=== PATIENT | male | born 1950 | race Caucasian/White ===

== ENCOUNTER 2016-06-24 13:19 | Inpatient (IN) | payer MEDICARE, OTHER ==
[2016-06-24] VITALS (276 sets, daily range): BP systolic 112–137; BP diastolic 38–72; PULSE 78–97; TEMP 98.3–99.1; O2SAT 92–100
[~2016-06-24] VITALS: Ht 170.2 cm; Wt 133.6 kg
[~2016-06-24 13:19] MED LIST: ACTOS30 MG PO; ASPIRIN 81M81 MG/TA2 PO; COLACE 100100 MG/CAP PO; EZETIMIBE10 MG PO; GLUCOPHAGE1000 MG PO; GLUCOTROL 5M5 MG/TAB PO; GLUMETZA1000 MG PO; HCTZ 25MG TAB25 MG PO; IRON325 MG PO; JANUVIA 100MG100 MG PO; PRAVACHOL 40MG40 MG PO; PROCARDIA XL90 MG PO; Procardia XL PO; XARELTO20 MG PO; ZESTRIL 10MG10 MG PO; ZESTRIL40 MG PO; ZYLOPRIM 100MG100 MG PO
[2016-06-24 13:59] LABS: BASO % 0.3 % (0.0-2.0); EOS # 0.1 (0.0-0.7); EOS % 0.7 % (0-4.0); GRAN # 8.6 (1.4-6.5); GRAN % 75.2 % (42.2-75.2); LYMPH # 1.3 (1.2-3.4); LYMPH % 11.3 % (20.0-51.0); MEAN CELL VOLUME 67 fl (80.0-100.0); MEAN CORPUSCULAR HGB CONC 29 g/dl (33.0-37.0); MEAN PLATELET VOLUME 10.4 fl (7.4-10.4); MONO # 1.4 (0.1-0.6); PLATELET COUNT 299 K/mm3 (130-400); RED BLOOD COUNT 4.92 M/mm3 (4.20-5.60); REDCELL DISTRIBUTION WIDTH-CV 20.2 % (11.5-14.5); WHITE BLOOD COUNT 11.5 K/mm3 (4.8-10.8)
[2016-06-24 14:00] LABS: HEMATOCRIT 32.9 % (42.0-52.0); HEMOGLOBIN 9.5 g/dl (13.5-18.0); MEAN CORPUSCULAR HEMOGLOBIN 19 pg (27.0-31.0)
[2016-06-24 14:05] LABS: INR 1.1 (0.8-3.0); PROTHROMBIN TIME 12.1 SECONDS (9.7-12.8)
[2016-06-24] MEDS ORDERED: HCTZ 25MG TAB25 MG PO (14:05)
[2016-06-24 14:08] LABS: PARTIAL THROMBOPLASTIN TIME 30.7 SECONDS (26.0-37.0)
[2016-06-24 14:23] LABS: ADJUSTED CALCIUM 9.2 mg/dL (8.4-10.2); ALANINE AMINOTRANSFERASE 26 U/L (21-72); ALKALINE PHOSPHATASE 109 U/L (50-136); ANION GAP 16 mmol/L (7-16); BILIRUBIN,TOTAL 1.1 mg/dL (0.0-1.0); BLOOD UREA NITROGEN 19 mg/dL (9-20); CALCIUM 9.2 mg/dL (8.4-10.2); CARBON DIOXIDE 20 mmol/L (22-30); CHLORIDE 96 mmol/L (98-107); CREATININE, serum 1.18 mg/dL (0.66-1.25); POTASSIUM 4.1 mmol/L (3.4-5.0); SODIUM 132 mmol/L (137-145); TOTAL PROTEIN 7.4 gm/dL (6.4-8.2)
[2016-06-24 14:33] LABS: B-TYPE NATRIURETIC PEPTIDE 221 pg/mL (0-125)
[2016-06-24 14:34] LABS: GLUCOSE 527 mg/dL (74-106); TROPONIN-I < 0.012 ng/mL (0.000-0.034)
[2016-06-24 17:58] LABS: HEMATOCRIT 32.9 % (42.0-52.0); HEMOGLOBIN 9.3 g/dl (13.5-18.0)
[2016-06-24 19:46] LABS: PH 5 (5-8); SQUAMOUS EPITHELIAL None Seen /hpf; URINE APPEARANCE Clear; URINE BACTERIA None Seen /hpf; URINE BILIRUBIN Negative (NEGATIVE); URINE BLOOD Negative (NEGATIVE); URINE COLOR Yellow; URINE GLUCOSE 3+ (NEGATIVE); URINE KETONE Negative (NEGATIVE); URINE UROBILINOGEN Negative (NEGATIVE)
[2016-06-24 20:05] LABS: HEMATOCRIT 31.3 % (42.0-52.0)
[2016-06-24 21:46] LABS: HEMATOCRIT 31.6 % (42.0-52.0); HEMOGLOBIN 9.1 g/dl (13.5-18.0)
[2016-06-24 23:58] LABS: HEMATOCRIT 30.7 % (42.0-52.0)
[2016-06-25] VITALS (393 sets, daily range): BP systolic 114–153; BP diastolic 58–81; PULSE 76–93; TEMP 97.9–99.1; O2SAT 86–100
[2016-06-25 07:32] LABS: THYROID STIMULATING HORMONE 0.507 uIU/mL (0.465-4.680)
[2016-06-25 08:32] LABS: BASO # 0.1 (0.0-0.2); BASO % 0.6 % (0.0-2.0); EOS # 0.3 (0.0-0.7); EOS % 3.5 % (0-4.0); GRAN # 6.8 (1.4-6.5); GRAN % 69.8 % (42.2-75.2); LYMPH # 1.3 (1.2-3.4); LYMPH % 13.5 % (20.0-51.0); MEAN CELL VOLUME 67 fl (80.0-100.0); MEAN CORPUSCULAR HGB CONC 28 g/dl (33.0-37.0); MEAN PLATELET VOLUME 11.4 fl (7.4-10.4); MONO # 1.2 (0.1-0.6); PLATELET COUNT 277 K/mm3 (130-400); RED BLOOD COUNT 4.46 M/mm3 (4.20-5.60); REDCELL DISTRIBUTION WIDTH-CV 20.1 % (11.5-14.5); WHITE BLOOD COUNT 9.8 K/mm3 (4.8-10.8)
[2016-06-25 08:34] LABS: HEMATOCRIT 29.9 % (42.0-52.0); HEMOGLOBIN 8.5 g/dl (13.5-18.0); MEAN CORPUSCULAR HEMOGLOBIN 19 pg (27.0-31.0)
[2016-06-25 09:48] LABS: CREATININE, serum 1.22 mg/dL (0.66-1.25); POTASSIUM 4.1 mmol/L (3.4-5.0)
[2016-06-26 00:31] VITALS: BP 151/64; PULSE 73; TEMP 98.8
[2016-06-26 04:15] VITALS: BP 148/74; PULSE 74; TEMP 98.6
[2016-06-26 07:59] VITALS: BP 130/61; PULSE 78; TEMP 98.3
[2016-06-26 10:00] LABS: FACTOR II ACTIVITY 88 % (72-140); FACTOR V 94 % (50-150)
[2016-06-26 10:00] LABS: BASO % 0.5 % (0.0-2.0); EOS # 0.3 (0.0-0.7); EOS % 4.3 % (0-4.0); GRAN # 4.9 (1.4-6.5); GRAN % 64.8 % (42.2-75.2); LYMPH # 1.3 (1.2-3.4); LYMPH % 17.6 % (20.0-51.0); MEAN CORPUSCULAR HGB CONC 29 g/dl (33.0-37.0); MEAN PLATELET VOLUME 11.3 fl (7.4-10.4); MONO # 0.9 (0.1-0.6); MONO % 12.3 % (1.7-9.3); PLATELET COUNT 286 K/mm3 (130-400); RED BLOOD COUNT 4.44 M/mm3 (4.20-5.60); REDCELL DISTRIBUTION WIDTH-CV 20.4 % (11.5-14.5); WHITE BLOOD COUNT 7.6 K/mm3 (4.8-10.8)
[2016-06-26 10:16] LABS: HEMATOCRIT 30.1 % (42.0-52.0); HEMOGLOBIN 8.6 g/dl (13.5-18.0); MEAN CELL VOLUME 68 fl (80.0-100.0); MEAN CORPUSCULAR HEMOGLOBIN 19 pg (27.0-31.0)
[2016-06-26 12:19] VITALS: BP 158/66; PULSE 75; TEMP 98.7
[2016-06-26 16:29] VITALS: BP 169/74; PULSE 76; TEMP 99.2
[2016-06-26 20:15] VITALS: BP 164/59; PULSE 70; TEMP 99.1
[2016-06-27] VITALS (7 sets, daily range): BP systolic 148–167; BP diastolic 62–91; PULSE 65–91; TEMP 98.1–98.6
[2016-06-27 08:05] LABS: FACTOR V LEIDEN MUTATION B Negative (Negative)
[2016-06-27 08:12] LABS: BASO % 0.6 % (0.0-2.0); EOS # 0.3 (0.0-0.7); EOS % 4.8 % (0-4.0); GRAN # 4.3 (1.4-6.5); GRAN % 62.3 % (42.2-75.2); LYMPH # 1.3 (1.2-3.4); LYMPH % 19.3 % (20.0-51.0); MEAN CORPUSCULAR HGB CONC 28 g/dl (33.0-37.0); MEAN PLATELET VOLUME 11.1 fl (7.4-10.4); MONO # 0.8 (0.1-0.6); MONO % 12.3 % (1.7-9.3); PLATELET COUNT 292 K/mm3 (130-400); RED BLOOD COUNT 4.37 M/mm3 (4.20-5.60); REDCELL DISTRIBUTION WIDTH-CV 20.5 % (11.5-14.5); WHITE BLOOD COUNT 6.8 K/mm3 (4.8-10.8)
[2016-06-27 08:18] LABS: HEMATOCRIT 30.1 % (42.0-52.0); HEMOGLOBIN 8.5 g/dl (13.5-18.0); MEAN CORPUSCULAR HEMOGLOBIN 19 pg (27.0-31.0)
[2016-06-27 08:19] LABS: MEAN CELL VOLUME 69 fl (80.0-100.0)
[2016-06-28 03:48] VITALS: BP 162/64; PULSE 65; TEMP 98.2
[2016-06-28 07:10] LABS: CALCIUM 8.9 mg/dL (8.4-10.2); CREATININE, serum 0.86 mg/dL (0.66-1.25); MAGNESIUM 1.7 mg/dL (1.6-2.3); POTASSIUM 3.8 mmol/L (3.4-5.0)
[2016-06-28 07:18] LABS: HEMOGLOBIN 8.1 g/dl (13.5-18.0)
[2016-06-28 07:51] VITALS: BP 147/76; PULSE 60; TEMP 98.4
[2016-06-28 11:57] VITALS: BP 156/73; PULSE 67; TEMP 98.6
[2016-06-28 12:34] LABS: PROTEIN C ACTIVITY 104 % (70-150)
[2016-06-28 12:56] LABS: PROTEIN S ACTIVITY 88 % (65-160)
[2016-06-28 20:20] VITALS: BP 152/65; PULSE 66; TEMP 98.4
[2016-06-28 23:58] VITALS: BP 137/72; PULSE 68; TEMP 98.5
[2016-06-29 03:06] VITALS: BP 128/58; PULSE 64; TEMP 98.8
[2016-06-29 07:00] VITALS: BP 161/76; PULSE 67; TEMP 98.3
[2016-06-29 07:26] LABS: HEMATOCRIT 28.7 % (42.0-52.0); HEMOGLOBIN 8.2 g/dl (13.5-18.0)
[2016-06-29 07:46] LABS: CREATININE, serum 0.93 mg/dL (0.66-1.25); POTASSIUM 3.7 mmol/L (3.4-5.0)
[2016-06-29] MEDS ORDERED: FERROUS SU325 MG/TAB PO (09:29)
[2016-06-29] MEDS ORDERED: ELIQUIS 5MG PO (09:29)
[2016-06-29 11:12] LABS: LUPUS ANTICOAGULANT INR 1.1 (()); LUPUS ANTICOAGULANT PT 12.3 sec (())
[2016-06-29 11:15] VITALS: BP 166/73; PULSE 75; TEMP 97.9
[2016-06-29 11:22] LABS: LUPUS ANTICOAGULANT PTT 76 sec (26 - 36)
[2016-06-29] MEDS ORDERED: PROTONIX 40MG T40 MG PO (11:22)
[2016-06-29 13:38] LABS: .ANTICARDIOLIPIN IGG <9.4 GPL (()); .ANTICARDIOLIPIN IGM 9.7 MPL (())
[2016-07-02 16:58] LABS: LUPUS ANTICOAGULANT DRVVT 1.4 ratio (())
== END 2016-06-29 14:21 | disposition home or self-care (01) | DRG 175 ==
LOC: COL.ER 13:19 → IMCU 15:43 → MEDICAL 15:43
PROVIDERS: Emergency Medicine; Internal Medicine; Internal Medicine Gastroenterology; Nurse Practitioner Family
PROC: 0DBH8ZX Excision of Cecum, Via Natural or Artificial Opening Endoscopic, Diagnostic (ICD-10-PCS; 2016-06-28)
PROC: 0DBL8ZX Excision of Transverse Colon, Via Natural or Artificial Opening Endoscopic, Diagnostic (ICD-10-PCS; 2016-06-28)
PROC: 0DBN8ZX Excision of Sigmoid Colon, Via Natural or Artificial Opening Endoscopic, Diagnostic (ICD-10-PCS; principal; 2016-06-28 14:45)
DX: I26.99 Other pulmonary embolism without acute cor pulmonale (principal); K57.31 Diverticulosis of large intestine without perforation or abscess with bleeding; I82.411 Acute embolism and thrombosis of right femoral vein; I82.431 Acute embolism and thrombosis of right popliteal vein; I82.4Z1 Acute embolism and thrombosis of unspecified deep veins of right distal lower extremity; Z68.42 Body mass index [BMI] 45.0-49.9, adult; E66.01 Morbid (severe) obesity due to excess calories; I10 Essential (primary) hypertension; G47.33 Obstructive sleep apnea (adult) (pediatric); D50.0 Iron deficiency anemia secondary to blood loss (chronic); E11.65 Type 2 diabetes mellitus with hyperglycemia; E78.5 Hyperlipidemia, unspecified; Z86.711 Personal history of pulmonary embolism; Z79.84 Long term (current) use of oral hypoglycemic drugs
CPT/HCPCS: 99223-AI; 99231-AI; 99232-AI; 99233-AI; 99239; J1644; J1815; J2250; J3010; J7030; Q9967

== ENCOUNTER → 2016-07-02 | Outpatient (CLI) | payer MEDICARE, OTHER ==
[~2016-07-02] MED LIST changes: +ELIQUIS 5MG PO; +FERROUS SU325 MG/TAB PO; +PRINIVIL40 MG PO; +PROTONIX 40MG T40 MG PO
[2016-07-02 09:24] LABS: MEAN CELL VOLUME 69 fl (80.0-100.0); MEAN CORPUSCULAR HGB CONC 28 g/dl (33.0-37.0); MEAN PLATELET VOLUME 10.1 fl (7.4-10.4); PLATELET COUNT 362 K/mm3 (130-400); REDCELL DISTRIBUTION WIDTH-CV 21.6 % (11.5-14.5); WHITE BLOOD COUNT 10.4 K/mm3 (4.8-10.8)
[2016-07-02 09:30] LABS: HEMATOCRIT 31.1 % (42.0-52.0); HEMOGLOBIN 8.8 g/dl (13.5-18.0); MEAN CORPUSCULAR HEMOGLOBIN 20 pg (27.0-31.0)
== END ==
LOC: COL.LAB 09:02
PROVIDERS: Nurse Practitioner Family
DX: D64.89 Other specified anemias (principal)

== ENCOUNTER 2016-11-08 11:24 | Emergency (ER) | payer MEDICARE, OTHER ==
[~2016-11-08] VITALS: Ht 170.2 cm; Wt 131.8 kg
[~2016-11-08 11:24] MED LIST changes: -PRINIVIL40 MG PO
[2016-11-08 11:30] VITALS: TEMP 97.6
[2016-11-08] MEDS ORDERED: PRINIVIL40 MG PO (11:35)
[2016-11-08 12:24] LABS: BASO # 0.1 (0.0-0.2); BASO % 0.6 % (0.0-2.0); EOS # 0.3 (0.0-0.7); EOS % 3.4 % (0-4.0); GRAN # 5.5 (1.4-6.5); GRAN % 70.3 % (42.2-75.2); HEMATOCRIT 39.8 % (42.0-52.0); HEMOGLOBIN 13.3 g/dl (13.5-18.0); LYMPH # 1.2 (1.2-3.4); LYMPH % 14.7 % (20.0-51.0); MEAN CELL VOLUME 83 fl (80.0-100.0); MEAN CORPUSCULAR HEMOGLOBIN 28 pg (27.0-31.0); MEAN CORPUSCULAR HGB CONC 33 g/dl (33.0-37.0); MEAN PLATELET VOLUME 11.2 fl (7.4-10.4); MONO # 0.8 (0.1-0.6); MONO % 10.4 % (1.7-9.3); PLATELET COUNT 206 K/mm3 (130-400); RED BLOOD COUNT 4.79 M/mm3 (4.20-5.60); REDCELL DISTRIBUTION WIDTH-CV 16.4 % (11.5-14.5); WHITE BLOOD COUNT 7.9 K/mm3 (4.8-10.8)
[2016-11-08 12:34] LABS: INR 1.1 (0.8-3.0); PROTHROMBIN TIME 12.6 SECONDS (9.7-12.8)
[2016-11-08 12:41] LABS: ADJUSTED CALCIUM 9.2 mg/dL (8.4-10.2); ALBUMIN 3.5 gm/dL (3.5-5.0); BILIRUBIN,TOTAL 0.7 mg/dL (0.0-1.0); CALCIUM 8.8 mg/dL (8.4-10.2); CREATININE, serum 0.76 mg/dL (0.66-1.25); POTASSIUM 3.3 mmol/L (3.4-5.0); TOTAL PROTEIN 6.5 gm/dL (6.4-8.2)
[2016-11-08 12:46] LABS: PH 5 (5-8); SQUAMOUS EPITHELIAL None Seen /hpf; URINE APPEARANCE Clear; URINE BACTERIA None Seen /hpf; URINE BILIRUBIN Negative (NEGATIVE); URINE BLOOD 1+ (NEGATIVE); URINE COLOR Yellow; URINE GLUCOSE Negative (NEGATIVE); URINE KETONE Negative (NEGATIVE); URINE RBC 0-2 /hpf; URINE UROBILINOGEN Negative (NEGATIVE); URINE WBC 0-2 /hpf
[2016-11-08 16:00] VITALS: BP 172/87; PULSE 68
== END 2016-11-08 16:00 | disposition home or self-care (01) ==
LOC: COL.ER 11:24
PROVIDERS: Emergency Medicine
DX: R41.3 Other amnesia (principal); R51 Headache; R53.1 Weakness; E11.9 Type 2 diabetes mellitus without complications; I10 Essential (primary) hypertension; Z79.84 Long term (current) use of oral hypoglycemic drugs; Z79.01 Long term (current) use of anticoagulants

== ENCOUNTER 2017-01-12 07:52 | Observation (INO) | payer MEDICARE, OTHER ==
[2017-01-12] VITALS (11 sets, daily range): BP systolic 128–176; BP diastolic 48–89; PULSE 75–134; TEMP 98–98.6
[~2017-01-12] VITALS: Ht 170.2 cm; Wt 132.3 kg
[~2017-01-12 07:52] MED LIST changes: +PRINIVIL40 MG PO
[2017-01-12 08:33] LABS: BASO % 0.3 % (0.0-2.0); EOS # 0.1 (0.0-0.7); EOS % 1.2 % (0-4.0); GRAN # 8.7 (1.4-6.5); GRAN % 78.5 % (42.2-75.2); HEMATOCRIT 39.7 % (42.0-52.0); HEMOGLOBIN 13.2 g/dl (13.5-18.0); LYMPH # 1.2 (1.2-3.4); LYMPH % 11.1 % (20.0-51.0); MEAN CELL VOLUME 89 fl (80.0-100.0); MEAN CORPUSCULAR HEMOGLOBIN 30 pg (27.0-31.0); MEAN CORPUSCULAR HGB CONC 33 g/dl (33.0-37.0); MEAN PLATELET VOLUME 10.8 fl (7.4-10.4); MONO # 0.9 (0.1-0.6); MONO % 8.5 % (1.7-9.3); PLATELET COUNT 219 K/mm3 (130-400); RED BLOOD COUNT 4.44 M/mm3 (4.20-5.60); REDCELL DISTRIBUTION WIDTH-CV 14.2 % (11.5-14.5)
[2017-01-12 08:35] LABS: INR 1.2 (0.8-3.0); PROTHROMBIN TIME 13.4 SECONDS (9.7-12.8)
[2017-01-12 08:41] LABS: ADJUSTED CALCIUM 9.4 mg/dL (8.4-10.2); ALBUMIN 4.1 gm/dL (3.5-5.0); C-REACTIVE PROTEIN 1.3 mg/dL (0.0-0.9); CALCIUM 9.5 mg/dL (8.4-10.2); CREATININE, serum 0.78 mg/dL (0.66-1.25); POTASSIUM 3.7 mmol/L (3.4-5.0); TOTAL PROTEIN 7.1 gm/dL (6.4-8.2)
[2017-01-12] MEDS ORDERED: BYDUREON PEN2 MG SQ (08:57)
[2017-01-12] MEDS ORDERED: NATURAL IRON65 MG PO (10:59)
[2017-01-13] VITALS (15 sets, daily range): BP systolic 124–157; BP diastolic 61–88; PULSE 68–77; TEMP 97.8–98.4
[2017-01-13 08:15] LABS: HEMATOCRIT 40.7 % (42.0-52.0); HEMOGLOBIN 13.6 g/dl (13.5-18.0); MEAN CELL VOLUME 88 fl (80.0-100.0); MEAN CORPUSCULAR HEMOGLOBIN 29 pg (27.0-31.0); MEAN CORPUSCULAR HGB CONC 33 g/dl (33.0-37.0); MEAN PLATELET VOLUME 11.2 fl (7.4-10.4); PLATELET COUNT 213 K/mm3 (130-400); RED BLOOD COUNT 4.63 M/mm3 (4.20-5.60)
[2017-01-13 08:21] LABS: INR 1.1 (0.8-3.0); PROTHROMBIN TIME 12.3 SECONDS (9.7-12.8)
[2017-01-13 08:24] LABS: PARTIAL THROMBOPLASTIN TIME 34.7 SECONDS (26.0-37.0)
[2017-01-13 08:34] LABS: CALCIUM 9.4 mg/dL (8.4-10.2); CREATININE, serum 0.72 mg/dL (0.66-1.25); POTASSIUM 3.7 mmol/L (3.4-5.0)
[2017-01-13] MEDS ORDERED: NORVASC 5MG5 MG/TAB PO (15:53)
[2017-01-13] MEDS ORDERED: ASPIRIN E.C. 8181 MG PO (16:12)
== END 2017-01-13 16:39 | disposition home or self-care (01) ==
LOC: COL.ER 07:52 → MEDICAL 10:09
PROVIDERS: Emergency Medicine; Internal Medicine Cardiovascular Disease
DX: R07.9 Chest pain, unspecified (principal); I26.99 Other pulmonary embolism without acute cor pulmonale; I82.409 Acute embolism and thrombosis of unspecified deep veins of unspecified lower extremity; D50.9 Iron deficiency anemia, unspecified; I10 Essential (primary) hypertension; E78.5 Hyperlipidemia, unspecified; E11.9 Type 2 diabetes mellitus without complications; E66.01 Morbid (severe) obesity due to excess calories; I08.1 Rheumatic disorders of both mitral and tricuspid valves; I25.10 Atherosclerotic heart disease of native coronary artery without angina pectoris; Z82.49 Family history of ischemic heart disease and other diseases of the circulatory system; Z79.84 Long term (current) use of oral hypoglycemic drugs; Z79.01 Long term (current) use of anticoagulants
CPT/HCPCS: 99223-AI; A9502; C1760; C1894; G0378; J1250; J2250; J3010; Q9967

== ENCOUNTER 2017-07-17 05:28 | Emergency (ER) | payer MEDICARE, OTHER ==
[~2017-07-17] VITALS: Ht 170.2 cm; Wt 127.3 kg
[~2017-07-17 05:28] MED LIST changes: +ASPIRIN E.C. 8181 MG PO; +BYDUREON PEN2 MG SQ; +NATURAL IRON65 MG PO; +NORVASC 5MG5 MG/TAB PO
[2017-07-17 05:53] LABS: HEMATOCRIT 40.8 % (42.0-52.0); HEMOGLOBIN 13.5 g/dl (13.5-18.0); MEAN CELL VOLUME 89 fl (80.0-100.0); MEAN CORPUSCULAR HEMOGLOBIN 30 pg (27.0-31.0); MEAN CORPUSCULAR HGB CONC 33 g/dl (33.0-37.0); MEAN PLATELET VOLUME 10.9 fl (7.4-10.4); PLATELET COUNT 239 K/mm3 (130-400); RED BLOOD COUNT 4.57 M/mm3 (4.20-5.60); REDCELL DISTRIBUTION WIDTH-CV 13.9 % (11.5-14.5)
[2017-07-17 05:55] LABS: INR 1.1 (0.8-3.0)
[2017-07-17 05:58] LABS: PARTIAL THROMBOPLASTIN TIME 31.6 SECONDS (26.0-37.0)
[2017-07-17 05:59] LABS: ALANINE AMINOTRANSFERASE 40 U/L (21-72); ALKALINE PHOSPHATASE 86 U/L (50-136); ANION GAP 19 mmol/L (7-16); AST,SGOT 26 U/L (15-37); BILIRUBIN,TOTAL 1.2 mg/dL (0.0-1.0); BLOOD UREA NITROGEN 18 mg/dL (9-20); CALCIUM 9.6 mg/dL (8.4-10.2); CARBON DIOXIDE 22 mmol/L (22-30); CHLORIDE 97 mmol/L (98-107); CREATINE KINASE 53 U/L (55-170); CREATININE, serum 0.98 mg/dL (0.66-1.25); GLUCOSE 372 mg/dL (74-106); LIPASE 118 U/L (23-300); POTASSIUM 4.3 mmol/L (3.4-5.0); SODIUM 138 mmol/L (137-145); TOTAL PROTEIN 7.6 gm/dL (6.4-8.2)
[2017-07-17 06:16] LABS: TROPONIN-I < 0.012 ng/mL (0.000-0.034)
[2017-07-17 06:25] LABS: BAND 6 % (0-10); LYMPHOCYTE 9 % (20.0-51.0); NEUTROPHILS 79 % (42.0-75.2); PLATELET ESTIMATE NORMAL (NORMAL)
[2017-07-17] MEDS ORDERED: CARDIZEM CD 24240 MG PO (07:23)
[2017-07-17] MEDS ORDERED: FORTAMET500 M1 PO (07:24)
[2017-07-17 08:31] VITALS: BP 114/63; PULSE 79; TEMP 98.2
[2017-07-17 09:16] LABS: COLLECTION METHOD CLEAN CATCH
[2017-07-17 09:22] LABS: MUCOUS Present /lpf; PH 5 (5-8); SQUAMOUS EPITHELIAL None Seen /hpf; URINE APPEARANCE Clear; URINE BACTERIA None Seen /hpf; URINE BILIRUBIN Negative (NEGATIVE); URINE BLOOD Negative (NEGATIVE); URINE COLOR Yellow; URINE GLUCOSE 3+ (NEGATIVE); URINE KETONE Trace (NEGATIVE); URINE LEUKOCYTE ESTERASE Negative (NEGATIVE); URINE NITRATE Negative (NEGATIVE); URINE PROTEIN(semi-quant) Negative (NEGATIVE); URINE RBC None Seen /hpf; URINE UROBILINOGEN Negative (NEGATIVE)
[2017-07-17] MEDS ORDERED: NEXIUM 24HR20 M1 PO (09:44)
== END 2017-07-17 09:56 | disposition home or self-care (01) ==
LOC: COL.ER 05:28
PROVIDERS: Emergency Medicine
DX: R07.89 Other chest pain (principal); R19.04 Left lower quadrant abdominal swelling, mass and lump; E11.9 Type 2 diabetes mellitus without complications; I10 Essential (primary) hypertension; E78.5 Hyperlipidemia, unspecified; Z87.19 Personal history of other diseases of the digestive system; Z98.890 Other specified postprocedural states; Z79.82 Long term (current) use of aspirin; Z86.711 Personal history of pulmonary embolism; Z79.01 Long term (current) use of anticoagulants; Z79.84 Long term (current) use of oral hypoglycemic drugs
CPT/HCPCS: J7030; Q9967

== ENCOUNTER → 2017-07-18 | Outpatient (CLI) | payer MEDICARE, OTHER ==
[~2017-07-18] MED LIST changes: +CARDIZEM CD 24240 MG PO; +FORTAMET500 M1 PO; +NEXIUM 24HR20 M1 PO
[2017-07-18 13:05] LABS: COLLECTION METHOD CLEAN CATCH
[2017-07-18 13:11] LABS: BASO % 0.3 % (0.0-2.0); EOS # 0.1 (0.0-0.7); GRAN # 7.6 (1.4-6.5); GRAN % 73.4 % (42.2-75.2); HEMOGLOBIN 13.3 g/dl (13.5-18.0); LYMPH # 1.5 (1.2-3.4); LYMPH % 14.3 % (20.0-51.0); MEAN CELL VOLUME 90 fl (80.0-100.0); MEAN CORPUSCULAR HEMOGLOBIN 30 pg (27.0-31.0); MEAN CORPUSCULAR HGB CONC 33 g/dl (33.0-37.0); MEAN PLATELET VOLUME 10.8 fl (7.4-10.4); MONO # 1.1 (0.1-0.6); MONO % 10.3 % (1.7-9.3); PLATELET COUNT 254 K/mm3 (130-400); RED BLOOD COUNT 4.46 M/mm3 (4.20-5.60); REDCELL DISTRIBUTION WIDTH-CV 13.8 % (11.5-14.5)
[2017-07-18 13:15] LABS: MUCOUS Present /lpf; PH 5 (5-8); SQUAMOUS EPITHELIAL 0-2 /hpf; URINE APPEARANCE Clear; URINE BACTERIA None Seen /hpf; URINE BILIRUBIN Negative (NEGATIVE); URINE BLOOD 2+ (NEGATIVE); URINE COLOR Yellow; URINE GLUCOSE 3+ (NEGATIVE); URINE KETONE Negative (NEGATIVE); URINE LEUKOCYTE ESTERASE Negative (NEGATIVE); URINE NITRATE Negative (NEGATIVE); URINE PROTEIN(semi-quant) Negative (NEGATIVE)
[2017-07-18 13:21] LABS: BILIRUBIN,TOTAL 1.3 mg/dL (0.0-1.0); CALCIUM 9.4 mg/dL (8.4-10.2); CREATININE, serum 1.03 mg/dL (0.66-1.25); POTASSIUM 3.8 mmol/L (3.4-5.0); TOTAL PROTEIN 7.8 gm/dL (6.4-8.2)
[2017-07-18 13:35] LABS: ERYTHROCYTE SEDIMENTATION RATE 67 mm/hr (0-30)
[2017-07-18 13:37] LABS: C-REACTIVE PROTEIN 17.5 mg/dL (0.0-0.9)
== END ==
LOC: COL.LAB 12:37
PROVIDERS: Registered Nurse
DX: R06.02 Shortness of breath (principal); R07.9 Chest pain, unspecified; Z86.711 Personal history of pulmonary embolism

== ENCOUNTER 2018-01-22 13:29 | Emergency (ER) | payer MEDICARE, OTHER ==
[~2018-01-22] VITALS: Ht 170.2 cm; Wt 125.0 kg
[2018-01-22 13:32] VITALS: TEMP 99.1
[2018-01-22 13:58] LABS: BASO % 0.3 % (0.0-2.0); EOS # 0.2 (0.0-0.7); EOS % 1.4 % (0-4.0); GRAN # 7.9 (1.4-6.5); GRAN % 72.5 % (42.2-75.2); HEMOGLOBIN 11.7 g/dl (13.5-18.0); LYMPH # 1.4 (1.2-3.4); LYMPH % 12.8 % (20.0-51.0); MEAN CELL VOLUME 84 fl (80.0-100.0); MEAN CORPUSCULAR HEMOGLOBIN 27 pg (27.0-31.0); MEAN CORPUSCULAR HGB CONC 32 g/dl (33.0-37.0); MEAN PLATELET VOLUME 10.9 fl (7.4-10.4); MONO # 1.4 (0.1-0.6); MONO % 12.5 % (1.7-9.3); PLATELET COUNT 269 K/mm3 (130-400); RED BLOOD COUNT 4.34 M/mm3 (4.20-5.60)
[2018-01-22 13:59] LABS: INR 1.3 (0.8-3.0); PROTHROMBIN TIME 14.9 SECONDS (9.7-12.8)
[2018-01-22 14:02] LABS: PARTIAL THROMBOPLASTIN TIME 39.6 SECONDS (26.0-37.0)
[2018-01-22 14:05] LABS: ALANINE AMINOTRANSFERASE 32 U/L (21-72); ALBUMIN 3.9 gm/dL (3.5-5.0); ALKALINE PHOSPHATASE 83 U/L (50-136); ANION GAP 12 mmol/L (7-16); AST,SGOT 24 U/L (15-37); BILIRUBIN,TOTAL 0.9 mg/dL (0.0-1.0); BLOOD UREA NITROGEN 22 mg/dL (9-20); CALCIUM 9.1 mg/dL (8.4-10.2); CARBON DIOXIDE 25 mmol/L (22-30); CHLORIDE 98 mmol/L (98-107); CREATININE, serum 1.03 mg/dL (0.66-1.25); GLUCOSE 364 mg/dL (74-106); LIPASE 124 U/L (23-300); POTASSIUM 4.2 mmol/L (3.4-5.0); SODIUM 135 mmol/L (137-145); TOTAL PROTEIN 7.5 gm/dL (6.4-8.2)
[2018-01-22 14:08] LABS: HEMATOCRIT 36.3 % (42.0-52.0)
[2018-01-22] MEDS ORDERED: ASPIRIN 81M81 MG/TA2 PO (14:12)
[2018-01-22] MEDS ORDERED: ZYLOPRIM 300MG300 MG PO (14:12)
[2018-01-22] MEDS ORDERED: ELIQUIS 5MG PO (14:14)
[2018-01-22] MEDS ORDERED: CARDIZEM CD 24240 MG PO (14:14)
[2018-01-22] MEDS ORDERED: BYDUREON PEN2 MG SQ (14:17)
[2018-01-22] MEDS ORDERED: FERRO-TIME325 MG PO (14:17)
[2018-01-22 14:18] LABS: TROPONIN-I < 0.012 ng/mL (0.000-0.034)
[2018-01-22] MEDS ORDERED: JANUVIA 100MG100 MG PO (14:18)
[2018-01-22] MEDS ORDERED: GLUCOTROL10 MG PO (14:18)
[2018-01-22] MEDS ORDERED: GLUCOPHAGE1000 MG PO (14:18)
[2018-01-22] MEDS ORDERED: PRINIVIL40 MG PO (14:18)
[2018-01-22] MEDS ORDERED: NEXIUM 20MG20 MG PO (14:19)
[2018-01-22] MEDS ORDERED: ZETIA 10MG TAB10 MG PO (14:19)
[2018-01-22] MEDS ORDERED: PRAVACHOL 40MG40 MG PO (14:19)
[2018-01-22] MEDS ORDERED: HCTZ 25MG TAB25 MG PO (14:20)
[2018-01-22 14:41] VITALS: BP 128/65
[2018-01-22 18:00] VITALS: PULSE 87
== END 2018-01-22 18:00 | disposition home or self-care (01) ==
LOC: COL.ER 13:29
PROVIDERS: Emergency Medicine
DX: R07.89 Other chest pain (principal); Z79.82 Long term (current) use of aspirin; Z86.711 Personal history of pulmonary embolism; Z86.718 Personal history of other venous thrombosis and embolism

== ENCOUNTER 2021-08-02 17:30 | Inpatient (IN) | payer MEDICARE, OTHER ==
[~2021-08-02] VITALS: Ht 167.6 cm; Wt 124.6 kg
[2021-08-02] VITALS (19 sets, daily range): O2SAT 96–99
[~2021-08-02 17:30] MED LIST changes: +FERRO-TIME325 MG PO; +GLUCOTROL10 MG PO; +NEXIUM 20MG20 MG PO; +ZETIA 10MG TAB10 MG PO; +ZYLOPRIM 300MG300 MG PO
[2021-08-02 18:29] LABS: MEAN CELL VOLUME 80 fl (80.0-100.0); MEAN CORPUSCULAR HGB CONC 29 g/dl (33.0-37.0); MEAN PLATELET VOLUME 10.3 fl (7.4-10.4); PLATELET COUNT 380 K/mm3 (130-400); RED BLOOD COUNT 4.23 M/mm3 (4.20-5.60); REDCELL DISTRIBUTION WIDTH-CV 18.3 % (11.5-14.5)
[2021-08-02 18:33] LABS: HEMATOCRIT 33.7 % (42.0-52.0); HEMOGLOBIN 9.9 g/dl (13.5-18.0); MEAN CORPUSCULAR HEMOGLOBIN 23 pg (27-31)
[2021-08-02 18:41] LABS: ALBUMIN 2.1 gm/dL (3.4-4.8); C-REACTIVE PROTEIN 24.66 mg/dL (0.00-0.50); CALCIUM 8.2 mg/dL (8.4-10.2); CREATININE, serum 1.88 mg/dL (0.72-1.25); POTASSIUM 3.6 mmol/L (3.5-4.5); TOTAL PROTEIN 7.6 gm/dL (6.2-8.1)
[2021-08-02 19:01] LABS: BILIRUBIN,TOTAL 1.2 mg/dL (0.2-1.2)
[2021-08-02 19:03] LABS: BAND 13 % (0-10); LYMPHOCYTE 4 % (20.0-51.0); NEUTROPHILS 81 % (42.0-75.2); TROPONIN-I 0.067 ng/mL (0.00-0.033)
[2021-08-02 19:04] LABS: PLATELET ESTIMATE NORMAL (NORMAL)
[2021-08-02 19:05] LABS: ANISOCYTOSIS 1+; MICROCYTOSIS 1+
[2021-08-02 19:07] LABS: HYPOCHROMIA 3+
[2021-08-02 19:35] LABS: COLLECTION METHOD CLEAN CATCH
[2021-08-02 19:42] LABS: MUCOUS Present (NOT PRESENT); PH 5 (5-8); SQUAMOUS EPITHELIAL 0-2 /hpf (0-10); URINE APPEARANCE Cloudy (CLEAR/HAZY); URINE BACTERIA Rare /hpf (NONE SEEN); URINE BILIRUBIN Positive (NEGATIVE); URINE BLOOD 1+ (NEGATIVE); URINE COLOR Amber (YELLOW); URINE GLUCOSE 1+ (NEGATIVE); URINE KETONE Trace (NEGATIVE); URINE LEUKOCYTE ESTERASE 2+ (NEGATIVE); URINE NITRATE Negative (NEGATIVE); URINE PROTEIN(semi-quant) 2+ (NEGATIVE); URINE UROBILINOGEN >=4.0 (NEGATIVE)
[2021-08-02 22:50] LABS: CREATINE KINASE 362 U/L (30-200)
[2021-08-02 22:51] LABS: SALICYLATE < 5.0 mg/dL (15.0-30.0)
[2021-08-03] VITALS (1423 sets, daily range): BP systolic 108–144; BP diastolic 58–87; PULSE 74–89; TEMP 97.8–98.8; O2SAT 82–100
--- NOTE | 2021-08-03 01:35 | NUR ---
ADMISSION ASSESSMENT COMPLETE. PT CURRENTLY AAOX4, HOWEVER DOES NOT REMEMBER HOW/WHY ENDED UP IN EMERGENCY ROOM. KNOWS [facility] BY AMBULANCE, ASSUMES NEIGHBOR CALLED. HAS SOME NOTED WORK OF BREATHING AND COUGH AT THIS TIME. LUNGS SOUND DIMINISHED, BUT CLEAR. CONGESTION SOUNDS TO BE FROM THROAT MORE THAN LUNG STEWARD. PT DOES NOT WISH FOR FAMILY TO BE NOTIFIED OF ADMISSION, STATES HIS DOCTOR, RENEE TAMAYO, PROBABLY ALREADY KNOWS. PT REPORTS NO PAIN OTHER THAN DISCOMFORT DUE TO PARRA CATHETER. DISCUSSED POC, STATES UNDERSTANDING. NO QUESTIONS OR CONCERNS AT THIS TIME. WILL CONTINUE TO MONITOR.
[2021-08-03] MEDS ORDERED: PRIL40 PO (02:41)
[2021-08-03] MEDS ORDERED: ACTOS30 MG PO (02:42)
[2021-08-03] MEDS ORDERED: GLUCOPHAGE500 MG/TAB PO (02:42)
[2021-08-03] MEDS ORDERED: GLUCOPHAGE XR500 M1 PO (03:04)
[2021-08-03] MEDS ORDERED: GLUCOTROL 5M5 MG/TAB PO (03:05)
[2021-08-03 06:51] LABS: HEMATOCRIT 33.3 % (42.0-52.0); HEMOGLOBIN 9.6 g/dl (13.5-18.0); MEAN CELL VOLUME 81 fl (80.0-100.0); MEAN CORPUSCULAR HEMOGLOBIN 23 pg (27-31); MEAN CORPUSCULAR HGB CONC 29 g/dl (33.0-37.0); MEAN PLATELET VOLUME 9.8 fl (7.4-10.4); PLATELET COUNT 324 K/mm3 (130-400); RED BLOOD COUNT 4.11 M/mm3 (4.20-5.60); REDCELL DISTRIBUTION WIDTH-CV 18.5 % (11.5-14.5)
--- NOTE | 2021-08-03 07:00 | NUR ---
PT HAVING ABD ULTRASOUND DONE IN ROOM. PT DENIES NEEDS AT THIS TIME. WILL CONTINUE TO MONTIOR.
[2021-08-03 07:03] LABS: BILIRUBIN,TOTAL 0.6 mg/dL (0.2-1.2); CALCIUM 8.3 mg/dL (8.4-10.2); CREATININE, serum 1.53 mg/dL (0.72-1.25); POTASSIUM 3.5 mmol/L (3.5-4.5); TOTAL PROTEIN 7.3 gm/dL (6.2-8.1)
[2021-08-03 07:46] LABS: BAND 12 % (0-10); LYMPHOCYTE 6 % (20.0-51.0); NEUTROPHILS 79 % (42.0-75.2); PLATELET ESTIMATE NORMAL (NORMAL); POLYCHROMASIA 1+
--- NOTE | 2021-08-03 07:46 | NUR ---
THIS RN RECEIVED A CALL FROM WITH RADIOLOGY REGARDING PT'S ABD ULTRASOUND SHOWING THICKENING AND AIR IN THE GALLBLADDER. CALLED AND NOTIFIED. AWAITING ORDERS. WILL CONTINUE TO [facility].
--- NOTE | 2021-08-03 09:43 | NUR ---
NOTIFIED OF CONSULT, PT'S STATUS, AND ABD ULTRASOUND RESULTS. WILL HOLD ASPIRIN AND ELIQUIS. STATES HE WILL SEE PATIENT THIS AFTERNOON.
--- NOTE | 2021-08-03 10:13 | NUR ---
asbestos abatement worker met with patient to complete initial intake and assessment for discharge planning. Patient states that he lives alone and is not and does not have any children. Patient states that his only sibling resides in [place] and has alzheimers. Worker stressed importance of patient completing advance directives and left documents in patient's room, with the offer to assist with completion. Patient states that his primary care provider is Dr Slade and that he obtains his prescriptions at [facility]. Patient plans to return home upon discharge. Patient states that he has been independent with his activities of daily living.
--- NOTE | 2021-08-03 15:38 | NUR ---
CALLED REGARDING CONSULT. UPDATED ON PT, AND STATES HE WILL EVALUATE.
--- NOTE | 2021-08-03 15:39 | NUR ---
ON UNIT AND ASKED IF PT IS ABLE TO EAT. PT PREVIOUSLY ON ELIQUIS WHICH IS NOW ON HOLD. STATES OK FOR CLEAR LIQUID DIET.
--- NOTE | 2021-08-03 16:05 | NUR ---
Casino Cashier followed up with patient to discuss Advance Directives. Patient only wanted to do Financial Power of Inner Layer Scrubber Tender and did not wish to designate anyone as DPOA for Healthcare. SW explained Financial DPOA would have to be done through an personal injury attorney.
[2021-08-04] VITALS (1264 sets, daily range): BP systolic 128–143; BP diastolic 62–74; PULSE 70–73; TEMP 98–99.1; O2SAT 75–100
[2021-08-04 05:10] LABS: BASO % 0.1 % (0.0-2.0); EOS % 0.3 % (0.0-4.0); LYMPH # 0.7 K/mm3 (1.2-3.4); LYMPH % 4.7 % (20.0-51.0); MEAN CELL VOLUME 82 fl (80.0-100.0); MEAN CORPUSCULAR HGB CONC 29 g/dl (33.0-37.0); MEAN PLATELET VOLUME 9.9 fl (7.4-10.4); MONO # 0.9 K/mm3 (0.1-0.6); MONO % 5.9 % (1.7-9.3); PLATELET COUNT 306 K/mm3 (130-400); REDCELL DISTRIBUTION WIDTH-CV 18.6 % (11.5-14.5)
[2021-08-04 05:14] LABS: HEMATOCRIT 31.9 % (42.0-52.0); HEMOGLOBIN 9.1 g/dl (13.5-18.0); MEAN CORPUSCULAR HEMOGLOBIN 23 pg (27-31)
[2021-08-04 05:16] LABS: INR 1.4 (0.8-3.0)
[2021-08-04 05:23] LABS: ALBUMIN 1.9 gm/dL (3.4-4.8); BILIRUBIN,TOTAL 0.4 mg/dL (0.2-1.2); CALCIUM 8.1 mg/dL (8.4-10.2); CREATININE, serum 1.08 mg/dL (0.72-1.25)
--- NOTE | 2021-08-04 07:00 | NUR ---
PT SLEEPING IN BED. VSS. WILL CONTINUE TO [facility]TIOR.
--- NOTE | 2021-08-04 11:33 | NUR ---
First visit from the soil sort worker. No needs right now.
--- NOTE | 2021-08-04 19:15 | NUR ---
Received report from MICHAEL Cook.
--- NOTE | 2021-08-04 20:00 | NUR ---
Patient resting quietly in bed. Vitals within normal limits. Denies any pain or discomfort. No IVF or medications infusing at this time. Patient aware of tomorrow's procedure and NPO status as of midnight. No further needs noted.
[2021-08-05] VITALS (624 sets, daily range): BP systolic 134–149; BP diastolic 65–82; PULSE 70–73; TEMP 97.9–98.7; O2SAT 73–100
--- NOTE | 2021-08-05 04:00 | NUR ---
Patient encouraged to move independently in bed. Offered assistance with repositioning as patient states his legs and feet are sore. Patient refuses turn assist or position changes despite staff encouragement.
[2021-08-05 06:36] LABS: MEAN CELL VOLUME 81 fl (80.0-100.0); MEAN CORPUSCULAR HGB CONC 28 g/dl (33.0-37.0); MEAN PLATELET VOLUME 10.4 fl (7.4-10.4); PLATELET COUNT 311 K/mm3 (130-400); RED BLOOD COUNT 3.86 M/mm3 (4.20-5.60); REDCELL DISTRIBUTION WIDTH-CV 18.5 % (11.5-14.5)
[2021-08-05 06:41] LABS: HEMATOCRIT 31.2 % (42.0-52.0); HEMOGLOBIN 8.8 g/dl (13.5-18.0); MEAN CORPUSCULAR HEMOGLOBIN 23 pg (27-31)
[2021-08-05 06:54] LABS: ALBUMIN 1.9 gm/dL (3.4-4.8); BILIRUBIN,TOTAL 0.5 mg/dL (0.2-1.2); CALCIUM 8.2 mg/dL (8.4-10.2); CREATININE, serum 0.92 mg/dL (0.72-1.25); POTASSIUM 4.2 mmol/L (3.5-4.5); TOTAL PROTEIN 6.9 gm/dL (6.2-8.1)
--- NOTE | 2021-08-05 07:00 | NUR ---
BEDSIDE REPORT RECEIVED FROM MICHAEL MARTIN. 18G PIV TO RIGHT AC. 20G PIV TO LEFT HAND. FC TO DEPENDENT DRAINAGE. PT NPO FOR LAP CHOLY THIS AFTERNOON. PT OFFERS NO COMPLAINTS. THIS NURSE OFFERED TO REPOSITION PT; PT REFUSED.
[2021-08-05 07:56] LABS: BAND 4 % (0-10); EOSINOPHIL 1 % (0-4); LYMPHOCYTE 5 % (20.0-51.0); METAMYELOCYTE 1 % (0-0); MICROCYTOSIS 1+; NEUTROPHILS 86 % (42.0-75.2); OVALOCYTES 1+; PLATELET ESTIMATE NORMAL (NORMAL)
[2021-08-05 07:57] LABS: HYPOCHROMIA 3+
--- NOTE | 2021-08-05 15:43 | NUR ---
Pt taken to OR by staff at this time. Pt will be going to rm 324 after surgery. Report called to MICHAEL Bustos on surgical floor. All of pt's belongings taken to 324 by this nurse.
--- NOTE | 2021-08-05 20:20 | NUR ---
NOT ABLE TO DO 1700 INTERVENTION "INTERPRET TELEMETRY STRIP" PATIENT WAS IN SURGERY
--- NOTE | 2021-08-05 20:43 | NUR ---
TX GIVEN VIA MASK PER PT REQUEST, TOLERATED WELL. RETURNED TO 3L O2 WHEN TX WAS FINISHED.
[2021-08-06 00:34] VITALS: BP 126/86; PULSE 77
--- NOTE | 2021-08-06 03:11 | NUR ---
TX GIVEN VIA MASK, TOLERATED WELL. PT WAS ASLEEP AND MOUTH BREATHING WHEN I ARRIVED. O2 NC FOUND ON 4L. O2 CHANGED TO AN OXYMASK, 5L = 95%. TOLERATING WELL AT THIS TIME, RN NOTIFIED OF CHANGES.
[2021-08-06 04:09] VITALS: BP 120/60; PULSE 72; TEMP 98.7
[2021-08-06 06:32] LABS: MEAN CELL VOLUME 83 fl (80.0-100.0); MEAN CORPUSCULAR HGB CONC 28 g/dl (33.0-37.0); MEAN PLATELET VOLUME 10.5 fl (7.4-10.4); PLATELET COUNT 311 K/mm3 (130-400); RED BLOOD COUNT 3.92 M/mm3 (4.20-5.60); REDCELL DISTRIBUTION WIDTH-CV 18.6 % (11.5-14.5)
[2021-08-06 06:43] LABS: HEMATOCRIT 32.5 % (42.0-52.0); HEMOGLOBIN 9.1 g/dl (13.5-18.0); MEAN CORPUSCULAR HEMOGLOBIN 23 pg (27-31)
--- NOTE | 2021-08-06 06:45 | NUR ---
Report received, assumed care for day shift.
[2021-08-06 06:49] LABS: ALBUMIN 1.8 gm/dL (3.4-4.8); BILIRUBIN,TOTAL 0.4 mg/dL (0.2-1.2); CALCIUM 8.2 mg/dL (8.4-10.2); CREATININE, serum 1.27 mg/dL (0.72-1.25); POTASSIUM 4.7 mmol/L (3.5-4.5); TOTAL PROTEIN 7.3 gm/dL (6.2-8.1)
--- NOTE | 2021-08-06 07:08 | NUR ---
Patient back to the surgical floor at approximately 1845. Patient is tolerating postop well. 4 lap sites that are covered with bandaids and are CDI and appear well approximated. Patient has tolerated oral food/meds well and has been drink fluids without difficulty. Patient is A&Ox3 and pleasant. Full body assessment completed. RT was in to see the patient and switched his NC to a simple face mask due to O2 averaging 86-88%. Patients O2 is no averaging 94-96%. Patient has had no complaints throughout the shift, call light within reach.
[2021-08-06 07:19] VITALS: BP 140/62; PULSE 68; TEMP 97.7
[2021-08-06 07:41] LABS: BAND 1 % (0-10); LYMPHOCYTE 4 % (20.0-51.0); METAMYELOCYTE 1 % (0-0); MYELOCYTE 3 % (0-0); NEUTROPHILS 89 % (42.0-75.2)
[2021-08-06 07:42] LABS: OVALOCYTES 1+; SCHISTOCYTES 1+; TEAR DROP CELLS 1+
--- NOTE | 2021-08-06 08:00 | NUR ---
Assessment complete. A&Ox3. Denies pain/nausea/shortness of breath. VS stable. Noted to have redness to right lower extremity. +3 edmea to bilat lower ext. LAPS x4 to evavzxg-lotnbaoc-DNC. O2@5L/NC with adequate o2 saturations. Tolerating PO. Adequate output. Plan of care discussed for this shift to include meds/PT/OT/calling for questions/concerns. Verbalizes understanding. call light in reach. Will monitor.
--- NOTE | 2021-08-06 11:11 | NUR ---
Patient is up to chair. bed linens have been changed, patients four surgical sites to abdomen are clean dry and intact. Patient has O2 running at 3L/min via nasal cannula. Patient has no complaints of pain at this time. Reported off to Lillie RODRIGUEZ. Tristan NOWAK student.
[2021-08-06 11:55] VITALS: BP 114/41; PULSE 68; TEMP 98
--- NOTE | 2021-08-06 14:32 | NUR ---
Direct Care Provider followed up with patient to review discharge plan. Patient's long time friend, Óscar Ramirez (ph#[phone]) is at bedside. SW reviewed PT's recommendation for post acute rehab vs home health. Patient states when he is ready to discharge, he will be going home. SW discussed HH services and their benefits, then provided Medicare.gov list of HH agencies that serve [place]. Patient thanked SW for the list but implied he would be throwing it away and was not interested in HH. 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 Patient is not on oxygen at baseline, but is currently requiring it. SW advised patient she would assist with setting up home oxygen if he needs it. Patient has a walker at home and advised Óscar is working on building a ramp into his mobile home. Discharge Plan: Home, declined rehab or home health
--- NOTE | 2021-08-06 15:37 | NUR ---
PCT reports blood sugar of 63. OJ given. Will reassess in 15 minutes.
--- NOTE | 2021-08-06 15:42 | NUR ---
[facility] was approached by patient's friend who advised patient was being a bit difficult earlier, but was interested in [facility] if available. SW contacted KEITH Bolden Director to give referral.
[2021-08-06 15:46] VITALS: BP 124/46; PULSE 67; TEMP 97.6
[2021-08-06 20:15] VITALS: BP 122/43; PULSE 72; TEMP 98.1
--- NOTE | 2021-08-06 21:40 | NUR ---
PT SITTING IN RECLINER AT BEDSIDE. HAS O2 @4L/NC. REPORTS HE WILL BE SLEEPING IN THE CHAIR TONIGHT, HE IS MORE COMFORTABLE THERE. HAS PITTING EDEMA TO BOTH LOWER LEGS, RT LEG WITH SCALY SKIN AND SLIGHT WEEPING. HAS INT TO RAC, FLUSHES WELL. PT DENIES PAIN. HS MEDS GIVEN. LAP SITES D/I TO ABD.
--- NOTE | 2021-08-06 23:00 | NUR ---
ASSISTED TO BSC FOR BM. PARRA TO BSD WITH YELLOW URINE.
[2021-08-07] VITALS (7 sets, daily range): BP systolic 104–138; BP diastolic 32–53; PULSE 53–72; TEMP 97.7–98.4
--- NOTE | 2021-08-07 04:45 | NUR ---
PT AWAKE, DENIES PAIN. IV ANTIBIOTIC GIVEN PER RAC SITE.
[2021-08-07 06:54] LABS: MEAN CELL VOLUME 82 fl (80.0-100.0); MEAN CORPUSCULAR HGB CONC 28 g/dl (33.0-37.0); MEAN PLATELET VOLUME 10.8 fl (7.4-10.4); PLATELET COUNT 365 K/mm3 (130-400); RED BLOOD COUNT 4.15 M/mm3 (4.20-5.60); REDCELL DISTRIBUTION WIDTH-CV 18.4 % (11.5-14.5)
[2021-08-07 07:07] LABS: CALCIUM 8.4 mg/dL (8.4-10.2); CREATININE, serum 1.9 mg/dL (0.72-1.25); POTASSIUM 4.9 mmol/L (3.5-4.5)
[2021-08-07 07:20] LABS: HEMATOCRIT 34.1 % (42.0-52.0); HEMOGLOBIN 9.7 g/dl (13.5-18.0); MEAN CORPUSCULAR HEMOGLOBIN 23 pg (27-31)
--- NOTE | 2021-08-07 09:56 | NUR ---
Received report from slot shift manager. Patient resting in chair. Guzman to DD with good output. Patient's BLE edematous 3+ with RLE oozing and weeping onto ground. Wrapped leg with gauze and irving wrap. Patient instructed to report any pain or oozing outside of irving wrap. Student nurse performed assessment and administered morning meds. Patient denies any pain at this time. Will continue to monitor.
--- NOTE | 2021-08-07 13:34 | NUR ---
Patient is currently sitting in his chair finishing his meal. Patient has no complaints of pain at this time. Call light and patients phone are within reach. Reported off to Teri RODRIGUEZ. Tristan NOWAK student.
--- NOTE | 2021-08-07 13:58 | NUR ---
Lighting Fixture Installer followed up with patient to review discharge plan. Patient is still interested in IPR and met with KEITH Bolden Director. POOJA discussed SNF options with patient as a second preference. Patient is agreeable to have referral sent to [facility]. POOJA contacted Antonio at [facility] and faxed referral. Discharge Plan: [facility] vs [facility]
--- NOTE | 2021-08-07 14:50 | NUR ---
The unitizer notified POOJA that the patient would like to speak to POOJA. POOJA met with the patient and his friend, Óscar. The patient states that he would like to complete a DPOA-HC while here. POOJA provided the form. The patient verbalized that he would like to designate his friend, Yonatan "Óscar" Gilbert (ph#[phone]), as his DPOA-HC and his other friend, Terri Aguirre (ph#[phone]), as the alternate. POOJA and DEANNA Meza, witnessed the patient's signature. POOJA provided the patient with the original and some copies. POOJA placed a copy in the patient's chart.
--- NOTE | 2021-08-07 20:00 | NUR ---
PATIENT IS A&O. VSS. O2 AT 2L PER NC WITH SATS IN MID 90'S. DENIES SOA OR CHEST PAIN. NOTED DEMINISHED LUNG BASES. PATIENT IS OBESE WITH ROUND ABD. ABD LAP SITES X4 ARE CD&I WITH BANDAID. NOTED +3 BLE EDEMA, SCALING/FLAKING & SCABS. RLE IS WEAPY AND HAS ACEWRAP DRESSING INPLACE. PARRA TO DD WITH MOD AMOUNTS OF CLEAR TO CLOUDY URINE NOTED. RIGHT AC IV TO INT. ADA DIET. BS IS 140, NO SSI REQUIRED. 1,500 FR. WEAK AND REQUIRED 2 MAX ASSIST. PT/OT CONSULTED. SCD'S CURRENTLY OFF. HEAD TO TOE ASSESSMENT COMPLETE. HS MEDS GIVEN. NO OTHER NEEDS AT THIS TIME. CALL LIGHT IN REACH.
[2021-08-08] VITALS (7 sets, daily range): BP systolic 109–168; BP diastolic 44–67; PULSE 65–70; TEMP 97.4–98.9
[2021-08-08 04:35] LABS: MEAN CELL VOLUME 82 fl (80.0-100.0); MEAN CORPUSCULAR HGB CONC 28 g/dl (33.0-37.0); MEAN PLATELET VOLUME 10.4 fl (7.4-10.4); PLATELET COUNT 320 K/mm3 (130-400); RED BLOOD COUNT 3.75 M/mm3 (4.20-5.60); REDCELL DISTRIBUTION WIDTH-CV 18.4 % (11.5-14.5)
[2021-08-08 04:44] LABS: HEMATOCRIT 30.8 % (42.0-52.0); HEMOGLOBIN 8.6 g/dl (13.5-18.0); MEAN CORPUSCULAR HEMOGLOBIN 23 pg (27-31)
[2021-08-08 04:53] LABS: ALBUMIN 1.8 gm/dL (3.4-4.8); CALCIUM 8.1 mg/dL (8.4-10.2); CREATININE, serum 2.73 mg/dL (0.72-1.25); PHOSPHOROUS 4.9 mg/dL (2.3-4.7); POTASSIUM 5.5 mmol/L (3.5-4.5)
[2021-08-08 05:00] LABS: FRACTIONAL EXCRETION OF NA+ 0.18 %
[2021-08-08 05:06] LABS: EOSINOPHIL 1 % (0-4); LYMPHOCYTE 8 % (20.0-51.0); NEUTROPHILS 86 % (42.0-75.2)
[2021-08-08 05:07] LABS: HYPOCHROMIA 2+
--- NOTE | 2021-08-08 18:05 | NUR ---
Received report from table games shift manager. Patient alert and oriented x4. VSS. Assessment performed. AM meds administered. Patient denies pain at this time. Consent signed for placement of dialysis cath. Patient tolerated procedure well. Patient dialyzed and tolerating well. Dinner tray ordered and will give report to table games shift manager.
--- NOTE | 2021-08-08 18:17 | NUR ---
Patient tolerated 1st HD tx with 2L of fluid removed. Next planned HD tx on Tuesday08/10/21 @ 0830.
[2021-08-09 03:55] VITALS: BP 121/48; PULSE 59; TEMP 98.3
--- NOTE | 2021-08-09 05:35 | NUR ---
REC'D CALL FROM TELEMETRY, PT HR 30's-40's with pausing, pt currently sleeping in recliner, easily awakens when name called. Ines GOLD notified, no new orders
--- NOTE | 2021-08-09 06:24 | NUR ---
pt on 2L O2 per NC this shift, up in recliner to sleep, refused to elevate feet, dressing to RLE SCOTT, osvaldo patent/secure. SS given after dinner last pm. slow resting HR this am, reported to ALLA Laird. RIJ dialysis catheter intact/secure. saline lock present in RAC
[2021-08-09 07:14] LABS: MEAN CELL VOLUME 82 fl (80.0-100.0); MEAN CORPUSCULAR HGB CONC 28 g/dl (33.0-37.0); MEAN PLATELET VOLUME 10.4 fl (7.4-10.4); PLATELET COUNT 335 K/mm3 (130-400); RED BLOOD COUNT 3.97 M/mm3 (4.20-5.60); REDCELL DISTRIBUTION WIDTH-CV 18.6 % (11.5-14.5)
[2021-08-09 07:18] VITALS: BP 116/48; PULSE 64; TEMP 97.6
[2021-08-09 07:19] LABS: HEMATOCRIT 32.6 % (42.0-52.0); HEMOGLOBIN 9.1 g/dl (13.5-18.0); MEAN CORPUSCULAR HEMOGLOBIN 23 pg (27-31)
[2021-08-09 07:36] LABS: CALCIUM 8.3 mg/dL (8.4-10.2); CREATININE, serum 2.19 mg/dL (0.72-1.25); POTASSIUM 5.5 mmol/L (3.5-4.5)
[2021-08-09 08:04] LABS: BAND 1 % (0-10); LYMPHOCYTE 13 % (20.0-51.0); NEUTROPHILS 83 % (42.0-75.2)
[2021-08-09 08:05] LABS: ANISOCYTOSIS 2+; HYPOCHROMIA 3+; PLATELET ESTIMATE NORMAL (NORMAL)
[2021-08-09 11:42] VITALS: BP 125/52; PULSE 70; TEMP 97.5
[2021-08-09 12:57] LABS: HEPATITIS B SURFACE ANTIBODY <2.0 (()); HEPATITIS B SURFACE ANTIGEN Negative (Negative); HEPATITIS C VIRUS ANTIBODY Negative (Negative)
--- NOTE | 2021-08-09 13:17 | NUR ---
Received report from day shift. Patient slept in chair overnight. Assessment performed. Guzman to DD with good output. Patient denies pain at this time. AM meds administered. Patient encouraged to elevate legs or return to bed. Patient complied and allowed nurse to elevate legs while in chair. Call light near.
[2021-08-09 15:34] VITALS: BP 125/46; PULSE 63; TEMP 97.5
[2021-08-09 19:57] VITALS: BP 143/47; PULSE 72; TEMP 97.9
--- NOTE | 2021-08-09 21:14 | NUR ---
Patient assessed around 2004. Alert and oriented, and able to make needs known. Denies pain and discomfort. Peripheral INT to right AC. HD catheter to right IJ. Denies SOB and dyspnea at rest, but reports he does with exertion. Patient in bed with HOB elevated. On oxygen at 2 L/min via NC. LS CTA in upper lobes, diminished in lower. Respirations shallow and even. Encouraged to use IS and take deep breaths. HRR. Telemetry in place. BSAx4. Abdominal lap sites x 4, no redness or drainage. Indwelling riley catheter patent with yellow, cloudy urine. Generalized edema. 1+ BUE. 3+ BLE. Scaling/flaking to BLE. Redness/warmth to RLE. Dressing to RLE CDI. In bed with call light within reach. Bed alarm on. Voices no questions, needs, or concerns at this time.
[2021-08-09 23:17] VITALS: BP 131/51; PULSE 69; TEMP 97.9
[2021-08-10 03:18] VITALS: BP 126/51; PULSE 68; TEMP 97.9
--- NOTE | 2021-08-10 05:11 | NUR ---
Patient denies having pain and discomfort this shift. Voices no questions, needs, or concerns at this time. Continues on oxygen at 2 L/min via NC. In bed with call light within reach. Bed alarm on.
[2021-08-10 07:11] VITALS: BP 136/57; PULSE 69; TEMP 98
[2021-08-10 09:41] LABS: MEAN CELL VOLUME 80 fl (80.0-100.0); MEAN CORPUSCULAR HGB CONC 29 g/dl (33.0-37.0); MEAN PLATELET VOLUME 10.3 fl (7.4-10.4); PLATELET COUNT 321 K/mm3 (130-400); RED BLOOD COUNT 3.78 M/mm3 (4.20-5.60); REDCELL DISTRIBUTION WIDTH-CV 18.6 % (11.5-14.5)
[2021-08-10 09:44] LABS: HEMATOCRIT 30.4 % (42.0-52.0); HEMOGLOBIN 8.7 g/dl (13.5-18.0); MEAN CORPUSCULAR HEMOGLOBIN 23 pg (27-31)
--- NOTE | 2021-08-10 09:47 | NUR ---
PT REFUSING BREAKFAST. AM MEDS GIVEN PRIOR TO DIALYSIS AFTER CHECKING WITH BRISA RODRIGUEZ FOR BEDROS. VSS. PT REPORTING PAIN WELL CONTROLLED. BLE WITH HEALING ULCERS/BLISTERS. PT IS DIABETIC. RIGHT ANKLE/FOOT WITH.
[2021-08-10 10:01] LABS: ALBUMIN 1.8 gm/dL (3.4-4.8); CALCIUM 8.4 mg/dL (8.4-10.2); CREATININE, serum 1.7 mg/dL (0.72-1.25); MAGNESIUM 1.9 mg/dL (1.6-2.6)
--- NOTE | 2021-08-10 11:33 | NUR ---
PATIENT TOLERATED HIS 2ND HD TX WITH 4L OF FLUID REMOVED. NEXT PLANNED HD TX TOMORROW, Tuesday08/11/21 @ 0830.
[2021-08-10 11:53] VITALS: BP 145/62; PULSE 70; TEMP 98.5
--- NOTE | 2021-08-10 13:25 | NUR ---
Warehouse Examiner faxed clinical updates to Antonio at [facility].
[2021-08-10 16:00] VITALS: BP 131/47; PULSE 72; TEMP 97.9
[2021-08-10 20:23] VITALS: BP 128/53; PULSE 75; TEMP 98
--- NOTE | 2021-08-10 20:30 | NUR ---
PT ASSISTED TO BSC, HAS LARGE BM. RIJ DIALYSIS CATH WITH LOOSE DRSG, ATTEMPTED TO SECURE, PTS FACE HAIRY. WEARING OXYGEN @2L/NC. INT TO RAC FLUSHES WELL.
--- NOTE | 2021-08-10 21:30 | NUR ---
PT IN BED. REMOVED BANDAIDS FROM LAP SITES TO ABD, HEALING WELL. PARRA TO BSD WITH YELLOW URINE. BLE EDEMA, SCALY AND FLAKY. HS MEDS GIVEN. PT DENIES PAIN.
[2021-08-11 00:40] VITALS: BP 142/64; PULSE 66; TEMP 98.3
[2021-08-11 04:09] VITALS: BP 128/51; PULSE 65; TEMP 98.3
--- NOTE | 2021-08-11 06:00 | NUR ---
PT HAS SLEPT IN BED ALL NIGHT. DENIES NEED FOR PAIN MEDS. AIDA PATENT. WILL HAVE DIALYSIS TODAY AT 0830.
[2021-08-11 07:54] VITALS: BP 149/61; PULSE 68; TEMP 98.2
--- NOTE | 2021-08-11 08:07 | NUR ---
Pt assessment complete. Pt is laying in bed upon entry, he arouses to voice. He is A/O x4. His breathing is even and unlabored on 1L O2 via NC, pt denies SOB. Pt denies pain. Pt denies any N/V, reports breakfast will be delivered to dialysis this am. Dressing to R foot CDI. No needs at this time. Call light within reach.
--- NOTE | 2021-08-11 08:46 | NUR ---
Pt left for dialysis via wheelchair at this time.
[2021-08-11 09:36] LABS: ALBUMIN 1.9 gm/dL (3.4-4.8); CALCIUM 8.4 mg/dL (8.4-10.2); CREATININE, serum 1.42 mg/dL (0.72-1.25); POTASSIUM 4.4 mmol/L (3.5-4.5)
--- NOTE | 2021-08-11 10:37 | NUR ---
Patient will discharge to [facility] today following dialysis. POOJA notified Antonio at [facility] and thanked him for reviewing referral. POOJA contacted patient's DPOA-HC, Óscar and notified him of discharge to [facility].
[2021-08-11] MEDS ORDERED: TYLENOL 325MG325 MG PO (11:55)
[2021-08-11] MEDS ORDERED: IPRATROPIUM BROM3 M1 IH (11:57)
[2021-08-11] MEDS ORDERED: AMOXICILLIN/CLA1 TA1 PO (11:57)
[2021-08-11 12:16] VITALS: BP 142/71; PULSE 70; TEMP 97.6
--- NOTE | 2021-08-11 12:18 | NUR ---
PATIENT TOLERATED HIS 3RD HD TX WITH 4.2L OF FLUID REMOVED. NEXT PLANNED HD TX PENDING LABS & ASSESSMENT.
--- NOTE | 2021-08-11 12:56 | NUR ---
Pt back from dialysis switched over to room 334 for IPR.
== END 2021-08-11 12:58 | DRG 853 ==
LOC: COL.ER 17:30 → SURG 21:53 → ICU 21:53 → COL.ER 21:53 → ICU 08-04 23:15 → SURG 08-05 15:45
PROVIDERS: Emergency Medicine; Internal Medicine; Internal Medicine Nephrology; Nurse Practitioner Family; Physician Assistant; Registered Nurse; Surgery; ADMIT Internal Medicine
PROC: 8E0W4CZ Robotic Assisted Procedure of Trunk Region, Percutaneous Endoscopic Approach (ICD-10-PCS; 2021-08-05)
PROC: 0FT44ZZ Resection of Gallbladder, Percutaneous Endoscopic Approach (ICD-10-PCS; principal; 2021-08-05 15:00)
PROC: 05HM33Z Insertion of Infusion Device into Right Internal Jugular Vein, Percutaneous Approach (ICD-10-PCS; 2021-08-08)
PROC: 5A1D70Z Performance of Urinary Filtration, Intermittent, Less than 6 Hours Per Day (ICD-10-PCS; 2021-08-08)
DX: A41.9 Sepsis, unspecified organism (principal); J96.01 Acute respiratory failure with hypoxia; J18.9 Pneumonia, unspecified organism; I21.A1 Myocardial infarction type 2; E87.2 Acidosis; N17.9 Acute kidney failure, unspecified; G93.40 Encephalopathy, unspecified; Z68.42 Body mass index [BMI] 45.0-49.9, adult; I50.32 Chronic diastolic (congestive) heart failure; N39.0 Urinary tract infection, site not specified; E66.2 Morbid (severe) obesity with alveolar hypoventilation; I11.0 Hypertensive heart disease with heart failure; R65.20 Severe sepsis without septic shock; E78.5 Hyperlipidemia, unspecified; I25.10 Atherosclerotic heart disease of native coronary artery without angina pectoris; I27.20 Pulmonary hypertension, unspecified; D50.9 Iron deficiency anemia, unspecified; E11.65 Type 2 diabetes mellitus with hyperglycemia; I34.0 Nonrheumatic mitral (valve) insufficiency; I48.91 Unspecified atrial fibrillation; I49.1 Atrial premature depolarization; I45.10 Unspecified right bundle-branch block; K81.9 Cholecystitis, unspecified; E87.5 Hyperkalemia; Z20.822 Contact with and (suspected) exposure to COVID-19; Z86.718 Personal history of other venous thrombosis and embolism; Z86.711 Personal history of pulmonary embolism; Z79.01 Long term (current) use of anticoagulants; Z79.84 Long term (current) use of oral hypoglycemic drugs; Z79.82 Long term (current) use of aspirin
CPT/HCPCS: 99232-AI; 99233-AI; 99239; A9284; C1751; J0456; J0690; J0692; J0696; J1100; J1450; J1644; J1815; J1940; J2185; J2405; J2704; J3010; J3370; J7030; J7040; J7050; J7120; Q5106

== ENCOUNTER 2021-08-11 10:51 | Inpatient (IN) | payer MEDICARE, OTHER ==
[~2021-08-11] VITALS: Ht 167.6 cm; Wt 131.6 kg
[~2021-08-11 10:51] MED LIST changes: +GLUCOPHAGE XR500 M1 PO; +GLUCOPHAGE500 MG/TAB PO; +PRIL40 PO
[2021-08-11] MEDS ORDERED: TYLENOL 325MG325 MG PO (11:55)
[2021-08-11] MEDS ORDERED: IPRATROPIUM BROM3 M1 IH (11:57)
[2021-08-11] MEDS ORDERED: AMOXICILLIN/CLA1 TA1 PO (11:57)
[2021-08-11 17:20] VITALS: BP 116/54; PULSE 70; TEMP 98
--- NOTE | 2021-08-11 18:32 | NUR ---
Pt in IPR at this time. Sitting up in the recliner, denies any pain or concerns. Megan PANDYA. POC discussed with patient who verbalizes understanding. No needs at this time. Call light within reach.
--- NOTE | 2021-08-11 21:00 | NUR ---
PT IN BED. HAS RAC INT, FLUSHES WELL. HAS RIJ DIALYSIS CATH, DRSG LOOSE, PT REFUSES TO BE SHAVED FOR DRSG TO ADHERE. ABD SOFT, UMB LAP SITE WITH SMALL KNOT UNDER SURFACE, OTHER LAP SITES HEALING WELL. SKIN DRY AND FLAKY TO ARMS AND LEGS. BLE WITH SWELLING, DRY SCALY LESIONS. RT FOOT WRAPPED, HAS LARGE DEFLATED BLISTER TO TOP OF RT FOOT. PARRA TO BSD WITH MINIMAL URINE OUTPUT, TEA COLORED. NOT WEARING OXYGEN AT THIS TIME. IS ALERT AND ORIENTED X4.
[2021-08-12 05:14] VITALS: BP 133/48; PULSE 71; TEMP 98
--- NOTE | 2021-08-12 07:13 | NUR ---
SHIFT REPORT RECEIVED FROM HOUSEKEEPER CHILD CARE RN. PT. AWAKE AND RESTING IN BED. DENIES PAIN OR DISCOMFORT. DENIES FURTHER NEEDS. CALL LIGHT IS WITHIN HIS REACH
[2021-08-12 08:01] LABS: CALCIUM 8.6 mg/dL (8.4-10.2); CREATININE, serum 1.37 mg/dL (0.72-1.25); PHOSPHOROUS 3.1 mg/dL (2.3-4.7); POTASSIUM 4.3 mmol/L (3.5-4.5)
--- NOTE | 2021-08-12 09:08 | NUR ---
Pt. ambulated to bathroom with OT and is now resting in recliner with both feet elevated. Lap toro sites x 4 to abdomen. Site above umbilicus began bleeding. 2x2 and foam tape applied to lap site. Will continue to monitor
--- NOTE | 2021-08-12 14:16 | NUR ---
Pt resting in recliner chair. Kerlix/irving wrap to right foot noted to be saturated with yellow drainage. Clean 4x4s, kerlix, and irving wrap applied to right foot blister. Blister to top of right foot is noted be no longer intact as reported by the night RN. Pt. denies any pain or discomfort. He denies further needs. Call light is within his reach
--- NOTE | 2021-08-12 15:04 | NUR ---
Nursing Unit Manager and SW student met with patient to complete initial intake as he is new to [facility]. Patient lives alone in [place] and sees Dr. Slade for primary care. Patient obtains medications from either [facility] or [facility]. Patient has a walker and no other DME. Patient reports he is normally independent with ADLS. Patient has DPOA-HC that he completed while on acute that designates his friends, Óscar (ph#[phone]) and Terri (ph#[phone]). POOJA provided copy of team conference notes to patient and advised he will be re-evaluated next week.
[2021-08-12 17:37] VITALS: BP 98/77; PULSE 67; TEMP 97.9
--- NOTE | 2021-08-12 21:57 | NUR ---
PATIENT ALERT AND ORIENTED. DENIES PAIN. JAZMIN AND GAUZE TO R FOOT. LEGS 3+ PITTING EDEMA. X4 LAPS CDI, SITE ABOVE UMBILICUS HAS GAUZE AND FOAM TAPE. HD CATH WAS REMOVED BY TITUS RODRIGUEZ AT SHIFT CHANGE. GAUZE AND FOAM TAPE PRESSURE DRESSING APPLIED. PATIENT TOLERATED THIS WELL. PARRA TO DD WITH TEA COLORED OUTPUT. PARRA BAG ON ICE, 24 HR URINE IN PROGRESS. HS MEDS PER EMAR. CURRENTLY IN BED WATCHING TV. CALL LIGHT IN REACH.
[2021-08-13 05:22] VITALS: BP 143/64; PULSE 65; TEMP 97.8
--- NOTE | 2021-08-13 08:00 | NUR ---
Patient sitting up in bed watching TV. A&Ox3. VSS. IV CDI. Denies pain and discomfort. Guzman intact on ice. Call light within reach. Bed alarm on
[2021-08-13 08:26] LABS: ALBUMIN 2.2 gm/dL (3.4-4.8); CALCIUM 8.7 mg/dL (8.4-10.2); CREATININE, serum 1.27 mg/dL (0.72-1.25); POTASSIUM 4.3 mmol/L (3.5-4.5)
--- NOTE | 2021-08-13 17:53 | NUR ---
Patient sitting up in bed finishing up eating dinner. Indpendent with feeds. A&Ox3. VSS. 24 hours urine completed. Denies pain and discomfort. Call light within reach
[2021-08-13 18:09] LABS: CREATININE, serum 1.48 mg/dL (0.72-1.25)
[2021-08-13 18:15] VITALS: BP 135/55; PULSE 72; TEMP 98.5
--- NOTE | 2021-08-13 18:26 | NUR ---
Guzman removed, balloon intact. 10ml water removed from balloon. Pericare provided before and after removal. Urinal at the bedside. Patient tolerated well. Call light within reach
[2021-08-14 05:17] VITALS: BP 146/53; PULSE 69; TEMP 98.4
--- NOTE | 2021-08-14 06:02 | NUR ---
pt had 100 cc of red tinged urine out @2200, another 300 cc this am. dressing to RLE CDI. no SS insulin required @hs. slept well this shift
--- NOTE | 2021-08-14 07:14 | NUR ---
SHIFT REPORT RECEIVED FROM ELECTRICAL HARDWARE ENGINEER RN. PT AWAKE AND LYING IN BED. DENIES PAIN OR DISCOMFORT. DENIES FURTHER NEEDS AT THIS TIME. CALL LIGHT IS WITHIN HIS REACH
[2021-08-14 08:49] LABS: ALBUMIN 2.2 gm/dL (3.4-4.8); CALCIUM 8.7 mg/dL (8.4-10.2); CREATININE, serum 1.2 mg/dL (0.72-1.25); PHOSPHOROUS 2.7 mg/dL (2.3-4.7); POTASSIUM 4.4 mmol/L (3.5-4.5)
--- NOTE | 2021-08-14 10:42 | NUR ---
Pt. resting supine in bed. HOB elevated approx 30 degrees. Dressing change completed to right foot. 4x4 and gauze noted to have dried yellow drainage. Clean non-adherent gauze, 4x4x, kerlix, and irving wrap reapplied. Lap site above umibilicus continues to bleed this morning. Incision reinforced with steri strips and covered with 2x2 gauze. Hospitalist team and/or surgeon will be contacted by Dr. Byrnes for eval. Pt. denies pain or discomfort. Denies further needs at this time. Call light is within his reach
--- NOTE | 2021-08-14 12:02 | NUR ---
Bleeding noted to lap site above umbilicus. Steri strips are still in place. Clean 2x2 gauze replaced
--- NOTE | 2021-08-14 13:29 | NUR ---
Admission QIM scores were reviewed by the team. Code of 4 chosen for oral hygiene was determined by team discussion to be the most usual performance for this patient during the assessment period. Code of 2 chosen for toilet hygiene was determined by team discussion to be the most usual performance for this patient during the assessment period. Code of 2 chosen for toileting transfers was determined by team discussion to be the most usual performance for this patient during the assessment period. Code of 2 chosen for lying to sitting on side of bed was determined by team discussion to be the most usual performance for this patient during the assessment period. Code of 88 for sit to stand was determined by team discussion to be the most usual performance for this patient during the assessment period. Code of 88 for chair/bed to chair transfers was determined by team discussion to be the most usual performance for this patient during the assessment period. Code of 88 chosen for walk 10 feet was determined by team discussion to be the most usual performance for this patient during the assessment period. Code of 88 chosen for walk 50 feet w/ 2 turns was determined by team discussion to be the most usual performance for this patient during the assessment period.--Kimi Friedman, PD
--- NOTE | 2021-08-14 14:33 | NUR ---
Jitney Driver met with patient to follow up before the weekend. Patient states he worked hard with therapy today. Patient also discussed his fluid restriction. Patient has no questions or concerns at this time.
--- NOTE | 2021-08-14 16:32 | NUR ---
Pt. resting in recliner. Does not want to elevate BLE on legrest. Dressing/irving wrap to LLE CDI. Dressing to abd. satured with bloody drainage. Clean 2x2 x2 applied with tape. Steri-strip still intact. He denies pain or discomfort. Denies further needs at this time. Call light is within his reach
[2021-08-14 17:22] VITALS: BP 151/448; BP 151/48; PULSE 69; TEMP 99.1
--- NOTE | 2021-08-14 22:25 | NUR ---
midline abdominal lap site drsg with mod amt of serosang. fluid present, steri strips intact, 2x2 gauze replaced.
[2021-08-15 05:22] VITALS: BP 151/58; PULSE 65; TEMP 98.6
[2021-08-15 08:21] LABS: ALBUMIN 2.1 gm/dL (3.4-4.8); CALCIUM 8.6 mg/dL (8.4-10.2); CREATININE, serum 1.05 mg/dL (0.72-1.25); PHOSPHOROUS 3.3 mg/dL (2.3-4.7); POTASSIUM 4.2 mmol/L (3.5-4.5)
--- NOTE | 2021-08-15 09:47 | NUR ---
DRESSING TO PT'S RIGHT FOOT IS CHANGED AFTER PT HAS SHOWER WITH OT. WOUND IS RED, FOOT IS EDEMATOUS. NON-ADHERENT PAD, KERLIX ET JAZMIN WRAP APPLIED. LAP INCISION ABOVE PT'S UMBILICUS IS DRAINING A SMALL AMOUNT OF SEROSANGUINEOUS FLUID, SKIN SURROUNDING IS RED ET WARM TO TOUCH. GAUZE IS CHANGED OVER INCISION, STERI STRIPS INTACT.
[2021-08-15] MEDS ORDERED: GLUCOTROL 5M5 MG/TAB PO (11:44)
[2021-08-15] MEDS ORDERED: HCTZ 25MG TAB25 MG PO (11:44)
[2021-08-15] MEDS ORDERED: GLUCOPHAGE500 MG/TAB PO (11:44)
[2021-08-15] MEDS ORDERED: PRINIVIL40 MG PO (11:44)
--- NOTE | 2021-08-15 16:14 | NUR ---
PT SITTING IN RECLINER CHAIR, RESPIRATIONS UNLABORED. PT HAS BEEN ASSISTED UP TO THE BR X1 TO HAVE A XLG BM. PT AMBULATES WITH SBA ET WALKER, BUT NEEDS MINIMUM ASSISTANCE FOR PERICARE. DRESSING TO RIGHT FOOT CDI. PT DENIES NEEDS. CALL LIGHT WITHIN REACH.
[2021-08-15 17:07] VITALS: BP 135/62; PULSE 64; TEMP 97.1
--- NOTE | 2021-08-15 21:00 | NUR ---
PT IN BED WATCHING TV. IS ALERT AND ORIENTED X4. HAS LEAKING LAP SITE AT UMBILICUS, APPLIED LARGE BANDAID. DRSG TO LOWER RT LEG/FOOT D/I. SKIN TO ARMS AND LEGS REMAIN SCALY/FLAKY. VOIDING PER URINAL SMALL AMT DK YELLOW. NO LONGER ON FLUID RESTRICTION. BLE EDEMA CONTINUES. HS MEDS GIVEN. DENIES PAIN.
[2021-08-16 05:58] VITALS: BP 122/45; PULSE 70; TEMP 98.3
--- NOTE | 2021-08-16 07:19 | NUR ---
Shift report received from scene shifter RN. Pt. awake and resting in bed. Call light is within his reach
--- NOTE | 2021-08-16 07:21 | NUR ---
Pt. reporting that he was scratching his left leg and is now bleeding. Upon entering pt. room, blood noted on floor and pt. holding a Kleenex to his LLE. Small, bleeding abrasion noted to left calf. Area cleansed with NS, 2x2 applied, and covered with bandaid
[2021-08-16 08:14] LABS: ALBUMIN 2.1 gm/dL (3.4-4.8); CREATININE, serum 1.15 mg/dL (0.72-1.25)
--- NOTE | 2021-08-16 14:19 | NUR ---
Pt. resting supine in bed. HOB elevated approx 30 degrees. He denies pain or discomfort. Small amt of serosang drainage noted on bandaid to supraabdominal lap site. Clean bandaid applied. Pt. denies further needs at this time. Call light is within his reach
[2021-08-16 16:51] VITALS: BP 123/51; PULSE 64; TEMP 97.7
--- NOTE | 2021-08-16 21:25 | NUR ---
PATIENT IN BED. ALERT AND ORIENTED. LOTION APPLIED TO BLE PER PT REQUEST AND STATED HE WAS ITCHY. BANDAID TO ABRASION ON RLE. SMALL PRESSURE DRESSING CDI TO LAP SITE ABOVE UMBILICUS. JAZMIN WRAP TO LLE CDI, GAUZE CLEAN. HS MEDS PER EMAR. DENIES PAIN. CURRENTLY IN BED, WATCHING TV, CALL LIGHT IN REACH.
[2021-08-17 05:28] VITALS: BP 131/46; PULSE 59; TEMP 97.8
--- NOTE | 2021-08-17 06:43 | NUR ---
Shift report received from real estate processor RN. Pt. sleeping in bed with HOB approx 30 degrees. Call light is within his reach
--- NOTE | 2021-08-17 07:45 | NUR ---
Pt. assisted from toilet to recliner in room. Dsg change completed to right foot. 4x4, non-adherent telfa, kerlix, and irving wrap applied. Pt. denies pain or discomfort at this time. Denies further needs. Call light is within his reach
[2021-08-17 09:28] LABS: ALBUMIN 2.1 gm/dL (3.4-4.8); CALCIUM 8.1 mg/dL (8.4-10.2); CREATININE, serum 1.26 mg/dL (0.72-1.25); PHOSPHOROUS 2.9 mg/dL (2.3-4.7); POTASSIUM 4.2 mmol/L (3.5-4.5)
--- NOTE | 2021-08-17 14:22 | NUR ---
SW met with the patient to follow up and introduce oneself. The patient states that he is doing just fine. He states that he should not need anything upon discharge and that with talking with the therapists, it sounds like he should be able to discharge soon. He had no concerns for SW.
[2021-08-17 15:34] VITALS: BP 119/51; PULSE 59; TEMP 98.4
--- NOTE | 2021-08-17 18:10 | NUR ---
Pt. resting supine in bed, HOB elevated approx 30 degrees. Dsg to right foot CDI. Bandaid to supra-umbilical lap site, replaced with clean bandaid. Scant amount of yellow drainage was noted on previous band aid. He denies pain or discomfort. Call light is within his reach
--- NOTE | 2021-08-17 22:18 | NUR ---
PATIENT IN BED. ALERT AND ORIENTED. HS MEDS PER EMAR. BLOOD SUGAR 154 AND SSI PER EMAR. JAZMIN WRAP TO R FOOT CDI. LOTION APPLIED TO BLE. DENIES PAIN.
[2021-08-18 05:30] VITALS: BP 118/50; PULSE 60; TEMP 97.8
--- NOTE | 2021-08-18 06:45 | NUR ---
Report received, assumed care for day shift.
--- NOTE | 2021-08-18 08:00 | NUR ---
Assessment complete. A&Ox3. Denies pain/nausea/shortness of breath. VS remain stable. Dressing to right foot CDI-irving/kerlix/non adherent. Noted to have bilat lower ext edema-2+ with multiple small scabbed areas to bilat legs. Laps x4-dressing to one site above belly button CDI-bandaid/steri strips. Plan of care discussed for this shift to include meds/therapy/calling for questions/concerns. Verbalizes understanding. Call light in reach. Will monitor.
[2021-08-18 08:19] LABS: ALBUMIN 2.3 gm/dL (3.4-4.8); CALCIUM 8.3 mg/dL (8.4-10.2); CREATININE, serum 1.35 mg/dL (0.72-1.25); PHOSPHOROUS 3.1 mg/dL (2.3-4.7); POTASSIUM 4.1 mmol/L (3.5-4.5)
--- NOTE | 2021-08-18 10:00 | NUR ---
Dressing to right foot changed at this time with non adherent dressing, kerlix and irving bandage. Dressing to lap site above belly button changed at this time as well. Noted to have a dime size area of serosanguineous fluid. Tolerated well.
--- NOTE | 2021-08-18 12:00 | NUR ---
Patient back to floor from group therapy. Sitting up in chair eating lunch. Discussed output-this nurse dumped 350 this morning from urinal. Patient states that he voided three times over night in urinal but wasnt charted. Discussed order to bladder scan to ensure theres no retention. States will call when done eating so that bladder scan can be completed. Denies current needs. Call light in reach.
[2021-08-18 16:57] VITALS: BP 117/47; PULSE 67; TEMP 98.3
--- NOTE | 2021-08-18 17:18 | NUR ---
Patient had an uneventful day. Participated in therapy. Has been up MOD I in room and tolerating well. Denied pain/nausea/shortness of breath. VS remained stable. Has had good output this shift. Unable to obtain bladder scan but patient states he feels as if he is emptying bladder. Denies current needs. Call light in reach. Will monitor.
--- NOTE | 2021-08-19 01:38 | NUR ---
Received report from day shift. Patient alert and oriented x4. VSS. Patient denies pain at this time. Assessment performed. PM meds administered. Patient resting in bed with call light near.
[2021-08-19 06:07] VITALS: BP 110/37; PULSE 58; TEMP 98
[2021-08-19 07:13] LABS: ALBUMIN 2.2 gm/dL (3.4-4.8); CALCIUM 8.4 mg/dL (8.4-10.2); CREATININE, serum 1.36 mg/dL (0.72-1.25); PHOSPHOROUS 3.5 mg/dL (2.3-4.7); POTASSIUM 4.3 mmol/L (3.5-4.5)
--- NOTE | 2021-08-19 07:15 | NUR ---
Shift report received from shift supervisor film processing RN. Pt. awake and sitting in recliner. He denies pain/discomfort. Denies further needs. Call light is within his reach
--- NOTE | 2021-08-19 10:10 | NUR ---
Pt. resting in recliner chair. He denies pain or discomfort. Dressing changed to right foot - yellow drainage noted on kerlix. Non-adherent gauze, 4x4s, kerlix, and irving wrap reapplied. Denies further needs at this time. Call light is within his reach
--- NOTE | 2021-08-19 17:00 | NUR ---
Pt. resting in recliner chair. Independent in his room. He denies pain or discomfort. Denies further needs at this time. Call light is within his reach
[2021-08-19 17:25] VITALS: BP 140/52; PULSE 63; TEMP 98.8
--- NOTE | 2021-08-19 19:15 | NUR ---
RECEIVED CHANGE OF SHIFT REPORT FROM DAY SHIFT RN. PATIENT UP IN ROOM INDEPENDENTLY WITH NO REPORTED PROBLEMS OR CONCERNS.
[2021-08-20 05:31] VITALS: BP 135/47; PULSE 65; TEMP 98
[2021-08-20 06:56] LABS: ALBUMIN 2.1 gm/dL (3.4-4.8); CALCIUM 8.4 mg/dL (8.4-10.2); CREATININE, serum 1.53 mg/dL (0.72-1.25); PHOSPHOROUS 3.4 mg/dL (2.3-4.7); POTASSIUM 4.2 mmol/L (3.5-4.5)
--- NOTE | 2021-08-20 06:56 | NUR ---
Shift report received from maintenance mechanic 2nd shift RN. Pt. awake and sitting in recliner. Denies pain or discomfort. Call light is within his reach
--- NOTE | 2021-08-20 07:11 | NUR ---
CHANGE OF SHIFT REPORT GIVEN TO DAY SHIFT RNJUAN ALBERTO.
--- NOTE | 2021-08-20 09:35 | NUR ---
Pt. resting in recliner after showering with assistance by OT this morning. Dsg change to rt. foot completed. Non-adherent gauze, kerlix wrap, and non-skid yellow sock applied. Pt. denies pain or discomfort at this time. Denies further needs. Call light is within his reach
--- NOTE | 2021-08-20 11:39 | NUR ---
POOJA met with the patient to present and review the IPR Team Conference Note. The team has set a discharge date for tomorrow, 08/21, and recommend home health PT/OT/SN. The patient is in agreement to discharge tomorrow, but states that he is declining home health. He repeated three times that he is independent and does not need home health. POOJA discussed the benefits of home health and how the team is recommending continued therapy, along with nursing services. 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 POOJA discussed the option of doing outpatient therapy. The patient states he may be interested in outpatient therapy, but is unsure. The patient was not interested in SW setting him up with outpatient therapy appointments. The patient had no concerns for SW. He states that his friend will transport him home tomorow. POOJA presented and read the IM form outloud to the patient. The patient verbalized and of discharge tomorrow. He signed the form and POOJA provided him with a copy. POOJA updated IPR Director.
--- NOTE | 2021-08-20 14:54 | NUR ---
Pt resting in recliner. Denies pain or discomfort at this time. Bandaids noted to right and middle abdominal lap sites. Right bandaid noted to have dried blood. Mid abdominal bandaid is moist with yellow drainage noted. Right lap site appears wet and mid abd. site with noted drainage leaking from site. Steristrips reinforced to mid abd. site and steristrips applied to right lap site. Both sites covered with clean bandaid. Pt. denies further needs at this time. Call light is within his reach
[2021-08-20 17:16] VITALS: BP 117/43; PULSE 65; TEMP 98.2
--- NOTE | 2021-08-20 20:30 | NUR ---
PT SITTING IN RECLINER. NO COMPLAINTS AT THIS TIME. SHIFT ASSESSMENT COMPLETE. CALL LIGHT IN REACH. MOD I IN ROOM.
--- NOTE | 2021-08-21 03:13 | NUR ---
SITTING UP IN CHAIR. LEANING OVER TABLE TO SLEEP.
[2021-08-21 05:10] VITALS: BP 102/39; PULSE 57; TEMP 97.7
--- NOTE | 2021-08-21 05:31 | NUR ---
PT REPORTS HE HAS VOIDED X2 THIS NIGHT.
--- NOTE | 2021-08-21 06:21 | NUR ---
PT SITTING UP IN CHAIR WATCHING TV. NO NEEDS AT THIS TIME.
[2021-08-21 07:09] LABS: ALBUMIN 2.3 gm/dL (3.4-4.8); CALCIUM 8.8 mg/dL (8.4-10.2); CREATININE, serum 1.54 mg/dL (0.72-1.25); PHOSPHOROUS 3.6 mg/dL (2.3-4.7); POTASSIUM 4.9 mmol/L (3.5-4.5)
--- NOTE | 2021-08-21 08:00 | NUR ---
Pt doing well, excited about going home. Discussed transportation with him. Pt currently sitting up in the chair, no pain complaints and no needs verbalized. Pt BP was low, BP meds held. This was also discussed with pt. Call light within reach
[2021-08-21] MEDS ORDERED: PRINIVIL40 MG PO (10:03)
[2021-08-21] MEDS ORDERED: HCTZ 25MG TAB25 MG PO (10:04)
--- NOTE | 2021-08-21 10:28 | NUR ---
Pt doing well, no pain complaints. Reviewed discharge instructions with him. Pt was not thrilled about the cardiology or nephrology appointments. Encouraged him to attend the appointments and then he could decide what the wanted to do after that. Lap sites to abd are all well approximated. Site at the umbilical does have some drainage and slightly swollen. Steristrips in place, new bandaid applied. Gave pt extra bandaids and encouraged him to change it every day until it is no longer draining. Pt awaiting his ride at this time
--- NOTE | 2021-08-21 10:40 | NUR ---
The patient's friend/DPOA-HC contacted the department and left a voicemail. contacted Óscar to follow up and review the discharge plan. Óscar is agreeable to the plan. He inquired about [employer] and if the patient were to agree to home health down the road. POOJA informed him that [employer] could provide meals and offered their phone number to him. Óscar declined and states that he can find it online. POOJA informed Óscar that if the patient does agree to home health in the future, the patient's PCP can help get home health set up. Óscar verbalized understanding. The patient is to discharge back home today, 08/21. He declined home health and is unsure of outpatient therapy at this time. The doctor wrote orders for outpatient therapy, in the event the patient does decide to pursue outpatient therapy. No additional needs at this time.
== END 2021-08-21 11:18 | disposition home or self-care (01) | DRG 947 ==
PROVIDERS: Registered Nurse; ADMIT Physical Medicine & Rehabilitation Sports Medicine
DX: R53.81 Other malaise (principal); A41.9 Sepsis, unspecified organism; R65.20 Severe sepsis without septic shock; J18.9 Pneumonia, unspecified organism; J96.01 Acute respiratory failure with hypoxia; I50.32 Chronic diastolic (congestive) heart failure; G93.40 Encephalopathy, unspecified; Z68.42 Body mass index [BMI] 45.0-49.9, adult; N17.9 Acute kidney failure, unspecified; E87.5 Hyperkalemia; I25.10 Atherosclerotic heart disease of native coronary artery without angina pectoris; E78.5 Hyperlipidemia, unspecified; M25.561 Pain in right knee; I11.0 Hypertensive heart disease with heart failure; I27.20 Pulmonary hypertension, unspecified; R26.89 Other abnormalities of gait and mobility; D50.9 Iron deficiency anemia, unspecified; E11.9 Type 2 diabetes mellitus without complications; E66.01 Morbid (severe) obesity due to excess calories; Z86.711 Personal history of pulmonary embolism; Z79.82 Long term (current) use of aspirin; Z79.01 Long term (current) use of anticoagulants; Z86.718 Personal history of other venous thrombosis and embolism; Z73.6 Limitation of activities due to disability; Z90.49 Acquired absence of other specified parts of digestive tract; Z79.2 Long term (current) use of antibiotics; Z88.8 Allergy status to other drugs, medicaments and biological substances; Z79.899 Other long term (current) drug therapy; Z60.2 Problems related to living alone
CPT/HCPCS: 99222; 99231-AI; 99232-AI; J1815; J1940

== ENCOUNTER 2022-02-24 09:36 | Inpatient (IN) | payer MEDICARE, OTHER ==
[~2022-02-24] VITALS: Ht 167.6 cm; Wt 122.1 kg
[~2022-02-24 09:36] MED LIST changes: +AMOXICILLIN/CLA1 TA1 PO; +IPRATROPIUM BROM3 M1 IH; +TYLENOL 325MG325 MG PO
[2022-02-24 14:38] LABS: MEAN CELL VOLUME 82 fl (80.0-100.0); MEAN CORPUSCULAR HGB CONC 30 g/dl (33.0-37.0); MEAN PLATELET VOLUME 10.5 fl (7.4-10.4); PLATELET COUNT 312 K/mm3 (130-400); REDCELL DISTRIBUTION WIDTH-CV 16.4 % (11.5-14.5)
[2022-02-24 14:39] LABS: HEMOGLOBIN 8.7 g/dl (13.5-18.0); MEAN CORPUSCULAR HEMOGLOBIN 25 pg (27-31)
[2022-02-24 14:40] LABS: HEMATOCRIT 28.8 % (42.0-52.0)
[2022-02-24 14:47] LABS: COLLECTION METHOD CATHETER
[2022-02-24 14:58] LABS: ALBUMIN 3.1 gm/dL (3.4-4.8); BILIRUBIN,TOTAL 1.1 mg/dL (0.2-1.2); CALCIUM 9.2 mg/dL (8.4-10.2); CREATININE, serum 1.07 mg/dL (0.72-1.25); POTASSIUM 3.7 mmol/L (3.5-4.5); TOTAL PROTEIN 7.1 gm/dL (6.2-8.1)
[2022-02-24 15:04] LABS: MUCOUS Present (NOT PRESENT); SQUAMOUS EPITHELIAL 0-2 /hpf (0-10); URINE APPEARANCE Hazy (CLEAR/HAZY); URINE BACTERIA Rare /hpf (NONE SEEN); URINE BLOOD 3+ (NEGATIVE); URINE COLOR Yellow (YELLOW); URINE GLUCOSE Negative (NEGATIVE); URINE KETONE TRACE (NEGATIVE); URINE NITRATE Negative (NEGATIVE); URINE PROTEIN(semi-quant) 2+ (NEGATIVE); URINE RBC >50 /hpf (0-2); URINE UROBILINOGEN 0.2 E.U/dL (0.2-1.0)
[2022-02-24 15:21] LABS: TROPONIN-I 0.015 ng/mL (0.00-0.033); TSH w REFLEX 0.69 uIU/mL (0.350-4.940)
[2022-02-24 15:23] LABS: ANISOCYTOSIS 1+; BAND 4 % (0-10); HYPOCHROMIA 1+; LYMPHOCYTE 9 % (20.0-51.0); NEUTROPHILS 83 % (42.0-75.2); PLATELET ESTIMATE NORMAL (NORMAL)
[2022-02-24 17:46] VITALS: BP 132/48; PULSE 88; TEMP 100.4
[2022-02-24] MEDS ORDERED: ACTOS30 MG PO (18:56)
[2022-02-24] MEDS ORDERED: NEXIUM 40MG40 MG PO (18:58)
[2022-02-24] MEDS ORDERED: BYDUREON B2 MG/0.85 (18:59)
[2022-02-24] MEDS ORDERED: PRINIVIL40 MG PO (19:03)
[2022-02-24] MEDS ORDERED: HCTZ 25MG TAB25 MG PO (19:03)
[2022-02-24] MEDS ORDERED: GLUCOPHAGE XR500 M1 PO (19:04)
[2022-02-24 19:33] VITALS: BP 153/58; PULSE 86; TEMP 98.9
[2022-02-24 23:54] VITALS: BP 155/63; PULSE 84; TEMP 98.5
[2022-02-25 04:07] VITALS: BP 149/59; PULSE 81; TEMP 98.6
[2022-02-25 06:26] LABS: BASO % 0.2 % (0.0-2.0); EOS % 0.1 % (0.0-4.0); GRAN # 12.4 K/mm3 (1.4-6.5); GRAN % 84.6 % (42.2-75.2); LYMPH # 0.7 K/mm3 (1.2-3.4); LYMPH % 4.6 % (20.0-51.0); MEAN CELL VOLUME 81 fl (80.0-100.0); MEAN CORPUSCULAR HGB CONC 30 g/dl (33.0-37.0); MEAN PLATELET VOLUME 10.3 fl (7.4-10.4); MONO # 1.4 K/mm3 (0.1-0.6); MONO % 9.8 % (1.7-9.3); PLATELET COUNT 280 K/mm3 (130-400); REDCELL DISTRIBUTION WIDTH-CV 16.3 % (11.5-14.5)
[2022-02-25 06:31] LABS: HEMATOCRIT 28.4 % (42.0-52.0); HEMOGLOBIN 8.6 g/dl (13.5-18.0); MEAN CORPUSCULAR HEMOGLOBIN 25 pg (27-31)
[2022-02-25 06:41] LABS: CALCIUM 8.9 mg/dL (8.4-10.2); CREATININE, serum 1.13 mg/dL (0.72-1.25); POTASSIUM 3.8 mmol/L (3.5-4.5)
[2022-02-25 08:00] VITALS: BP 157/64; PULSE 81; TEMP 93; TEMP 98.6
[2022-02-25 12:00] VITALS: BP 151/52; PULSE 82; TEMP 98.6
[2022-02-25 16:07] VITALS: BP 166/70; PULSE 82; TEMP 98.6
[2022-02-25 19:39] VITALS: BP 143/55; PULSE 86; TEMP 98.3
[2022-02-26 01:20] VITALS: BP 143/57; PULSE 82; TEMP 98.3
[2022-02-26 04:02] VITALS: BP 129/62; PULSE 77; TEMP 98.2
[2022-02-26 06:24] LABS: BASO % 0.3 % (0.0-2.0); EOS # 0.1 K/mm3 (0.0-0.7); EOS % 0.4 % (0.0-4.0); GRAN # 9.6 K/mm3 (1.4-6.5); GRAN % 83.2 % (42.2-75.2); LYMPH # 0.6 K/mm3 (1.2-3.4); LYMPH % 4.9 % (20.0-51.0); MEAN CELL VOLUME 81 fl (80.0-100.0); MEAN CORPUSCULAR HGB CONC 30 g/dl (33.0-37.0); MEAN PLATELET VOLUME 10.3 fl (7.4-10.4); MONO # 1.2 K/mm3 (0.1-0.6); MONO % 10.6 % (1.7-9.3); PLATELET COUNT 278 K/mm3 (130-400); RED BLOOD COUNT 3.35 M/mm3 (4.20-5.60); REDCELL DISTRIBUTION WIDTH-CV 16.1 % (11.5-14.5)
[2022-02-26 06:32] LABS: HEMOGLOBIN 8.2 g/dl (13.5-18.0); MEAN CORPUSCULAR HEMOGLOBIN 24 pg (27-31)
[2022-02-26 06:33] LABS: CALCIUM 8.2 mg/dL (8.4-10.2); CREATININE, serum 1.16 mg/dL (0.72-1.25); HEMATOCRIT 27.2 % (42.0-52.0); POTASSIUM 3.8 mmol/L (3.5-4.5)
[2022-02-26 07:56] VITALS: BP 154/62; PULSE 81; TEMP 97.9
[2022-02-26 12:00] VITALS: BP 145/56; PULSE 77; TEMP 98.1
[2022-02-26 16:00] VITALS: BP 140/54; PULSE 75; TEMP 99.3
[2022-02-26 20:18] VITALS: BP 142/49; PULSE 78; TEMP 98.7
[2022-02-27] VITALS (7 sets, daily range): BP systolic 150–177; BP diastolic 53–76; PULSE 71–79; TEMP 97.8–99.1
[2022-02-28 04:24] VITALS: BP 167/58; PULSE 81; TEMP 98.5
[2022-02-28 08:29] VITALS: BP 151/58; PULSE 77; TEMP 97.3
[2022-02-28 12:00] VITALS: BP 177/62; PULSE 76; TEMP 98.8
[2022-02-28 16:00] VITALS: BP 173/63; PULSE 75; TEMP 98.4
[2022-02-28 20:17] VITALS: BP 127/44; PULSE 72; TEMP 98.9
[2022-03-01 00:36] VITALS: BP 120/39; PULSE 67; TEMP 97.9
[2022-03-01 04:00] VITALS: BP 135/56; PULSE 65; TEMP 98
[2022-03-01 06:43] LABS: MEAN CELL VOLUME 80 fl (80.0-100.0); MEAN CORPUSCULAR HGB CONC 30 g/dl (33.0-37.0); MEAN PLATELET VOLUME 10.2 fl (7.4-10.4); PLATELET COUNT 319 K/mm3 (130-400); RED BLOOD COUNT 3.31 M/mm3 (4.20-5.60); REDCELL DISTRIBUTION WIDTH-CV 16.1 % (11.5-14.5)
[2022-03-01 06:47] LABS: HEMATOCRIT 26.5 % (42.0-52.0); MEAN CORPUSCULAR HEMOGLOBIN 24 pg (27-31)
[2022-03-01 07:04] LABS: CALCIUM 7.9 mg/dL (8.4-10.2); CREATININE, serum 1.39 mg/dL (0.72-1.25); MAGNESIUM 2.1 mg/dL (1.6-2.6); POTASSIUM 4.1 mmol/L (3.5-4.5)
[2022-03-01 08:08] LABS: ANISOCYTOSIS 1+; BASOPHIL 1 % (0-2); EOSINOPHIL 1 % (0-4); HYPOCHROMIA 3+; LYMPHOCYTE 9 % (20.0-51.0); NEUTROPHILS 79 % (42.0-75.2); PLATELET ESTIMATE NORMAL (NORMAL)
[2022-03-01 08:23] VITALS: BP 130/39; PULSE 66; TEMP 97.8
[2022-03-01] MEDS ORDERED: MICROZIDE12.5 MG PO (08:29)
[2022-03-01 08:30] VITALS: BP 119/45
[2022-03-01 08:52] LABS: SYNOVIAL FL. MONONUCLEAR 14.3 % (0-75)
[2022-03-01 08:56] LABS: SYNOVIAL FLUID RBC 32000 /mm3 (0-0); SYNOVIAL FLUID WBC 101456 /mm3 (200-600)
[2022-03-01 09:02] LABS: SYNOVIAL FLUID APPEARANCE TURBID; SYNOVIAL FLUID COLOR PINK
[2022-03-01 11:32] VITALS: BP 122/43; PULSE 64; TEMP 97.7
[2022-03-02] MEDS ORDERED: HCTZ 25MG TAB25 MG PO (16:36)
[2022-03-02] MEDS ORDERED: GLUCOTROL10 MG PO (16:39)
== END 2022-03-01 13:49 | DRG 872 ==
LOC: COL.ER 09:36 → MEDICAL 15:25
PROVIDERS: Emergency Medicine; Physician Assistant; ADMIT Internal Medicine
DX: A41.9 Sepsis, unspecified organism (principal); I50.32 Chronic diastolic (congestive) heart failure; I13.0 Hypertensive heart and chronic kidney disease with heart failure and stage 1 through stage 4 chronic kidney disease, or unspecified chronic kidney disease; Z68.42 Body mass index [BMI] 45.0-49.9, adult; E78.5 Hyperlipidemia, unspecified; G47.33 Obstructive sleep apnea (adult) (pediatric); I25.10 Atherosclerotic heart disease of native coronary artery without angina pectoris; I27.20 Pulmonary hypertension, unspecified; Z66 Do not resuscitate; D50.9 Iron deficiency anemia, unspecified; E66.01 Morbid (severe) obesity due to excess calories; S62.616A Displaced fracture of proximal phalanx of right little finger, initial encounter for closed fracture; W18.39XA Other fall on same level, initial encounter; Z20.822 Contact with and (suspected) exposure to COVID-19; M25.562 Pain in left knee; M25.561 Pain in right knee; E11.22 Type 2 diabetes mellitus with diabetic chronic kidney disease; N18.30 Chronic kidney disease, stage 3 unspecified; M25.462 Effusion, left knee; Z87.19 Personal history of other diseases of the digestive system; Z79.82 Long term (current) use of aspirin; Z88.8 Allergy status to other drugs, medicaments and biological substances; Z86.718 Personal history of other venous thrombosis and embolism; Z79.01 Long term (current) use of anticoagulants; Z86.711 Personal history of pulmonary embolism; Y93.89 Activity, other specified; Y92.89 Other specified places as the place of occurrence of the external cause; Z79.84 Long term (current) use of oral hypoglycemic drugs; Z23 Encounter for immunization
CPT/HCPCS: J0696; J1815; J3301

== ENCOUNTER 2022-03-02 11:00 | Observation (INO) | payer MEDICARE, OTHER ==
[~2022-03-02] VITALS: Ht 167.6 cm; Wt 128.0 kg
[~2022-03-02 11:00] MED LIST changes: +BYDUREON B2 MG/0.85; +MICROZIDE12.5 MG PO; +NEXIUM 40MG40 MG PO
[2022-03-02 13:54] LABS: MEAN CELL VOLUME 80 fl (80.0-100.0); MEAN CORPUSCULAR HGB CONC 30 g/dl (33.0-37.0); PLATELET COUNT 379 K/mm3 (130-400); RED BLOOD COUNT 3.57 M/mm3 (4.20-5.60); REDCELL DISTRIBUTION WIDTH-CV 16.3 % (11.5-14.5)
[2022-03-02 13:55] LABS: HEMATOCRIT 28.7 % (42.0-52.0); HEMOGLOBIN 8.6 g/dl (13.5-18.0); MEAN CORPUSCULAR HEMOGLOBIN 24 pg (27-31)
[2022-03-02 14:12] LABS: ANISOCYTOSIS 1+; HYPOCHROMIA 3+; LYMPHOCYTE 4 % (20.0-51.0); NEUTROPHILS 90 % (42.0-75.2); PLATELET ESTIMATE NORMAL (NORMAL)
[2022-03-02 14:19] LABS: ALBUMIN 2.2 gm/dL (3.4-4.8); BILIRUBIN,TOTAL 0.7 mg/dL (0.2-1.2); CALCIUM 8.8 mg/dL (8.4-10.2); CREATININE, serum 2.06 mg/dL (0.72-1.25); POTASSIUM 4.6 mmol/L (3.5-4.5); TOTAL PROTEIN 6.7 gm/dL (6.2-8.1)
[2022-03-02 16:02] VITALS: BP 152/55; PULSE 68; TEMP 98.1
[2022-03-02] MEDS ORDERED: HCTZ 25MG TAB25 MG PO (16:36)
[2022-03-02] MEDS ORDERED: GLUCOTROL10 MG PO (16:39)
[2022-03-02 17:00] LABS: HEMATOCRIT 27.9 % (42.0-52.0); HEMOGLOBIN 8.5 g/dl (13.5-18.0)
--- NOTE | 2022-03-02 18:38 | NUR ---
PT ALERT AND ORIENTED SITTING UP IN BED. PT DENIES PAIN. PT REPORTS EPISODES OF BLOODY STOOL WHICH BROUGHT HIM TO THE ER. IV FLUIDS INFUSIN. CALL LIGHT WITHIN REACH. NO FURTHER NEEDS AT THE MOMENT.
[2022-03-02 21:03] VITALS: BP 147/61; PULSE 66; TEMP 97.4
[2022-03-02 21:33] LABS: HEMATOCRIT 27.8 % (42.0-52.0); HEMOGLOBIN 8.4 g/dl (13.5-18.0)
[2022-03-02 23:33] VITALS: BP 143/67; PULSE 68; TEMP 98
[2022-03-03 04:33] VITALS: BP 159/55; PULSE 71; TEMP 97.4
[2022-03-03 06:44] LABS: MEAN CELL VOLUME 82 fl (80.0-100.0); MEAN CORPUSCULAR HGB CONC 29 g/dl (33.0-37.0); MEAN PLATELET VOLUME 10.8 fl (7.4-10.4); PLATELET COUNT 399 K/mm3 (130-400); RED BLOOD COUNT 3.53 M/mm3 (4.20-5.60); REDCELL DISTRIBUTION WIDTH-CV 16.4 % (11.5-14.5)
[2022-03-03 06:46] LABS: HEMATOCRIT 29.1 % (42.0-52.0); HEMOGLOBIN 8.4 g/dl (13.5-18.0); MEAN CORPUSCULAR HEMOGLOBIN 24 pg (27-31)
[2022-03-03 07:00] LABS: ANISOCYTOSIS 1+; BAND 2 % (0-10); HYPOCHROMIA 3+; LYMPHOCYTE 7 % (20.0-51.0); NEUTROPHILS 81 % (42.0-75.2); PLATELET ESTIMATE NORMAL (NORMAL)
[2022-03-03 07:01] LABS: MICROCYTOSIS 1+
[2022-03-03 07:22] LABS: ALBUMIN 2.1 gm/dL (3.4-4.8); CALCIUM 8.7 mg/dL (8.4-10.2); CREATININE, serum 1.35 mg/dL (0.72-1.25); MAGNESIUM 2.3 mg/dL (1.6-2.6); PHOSPHOROUS 3.1 mg/dL (2.3-4.7); POTASSIUM 4.2 mmol/L (3.5-4.5)
[2022-03-03 08:22] VITALS: BP 149/63; PULSE 68; TEMP 97.4
--- NOTE | 2022-03-03 09:39 | NUR ---
PT RESTING IN BED. PO MORNING MEDICATIONS HELD FOR PROCEDURE. SHIFT ASSESSMENT COMPLETED. PT COMPLAINS OF MODERATE PAIN TO R WRIST, SPLINT IN PLACE. BLE WRAPPED AT THIS TIME. PT COMPLETED BOWEL PREP OVERNIGHT. UPDATED ON POC. IVF INFUSING. WILL CONTINUE TO MONITOR.
[2022-03-03 09:58] LABS: HEMATOCRIT 30.2 % (42.0-52.0); HEMOGLOBIN 9.2 g/dl (13.5-18.0)
[2022-03-03 12:38] VITALS: BP 141/69; PULSE 70; TEMP 98.2
--- NOTE | 2022-03-03 13:15 | NUR ---
Follow-up; Greeted Ricardo as he was leaving his room on a gurney for testing.
--- NOTE | 2022-03-03 14:06 | NUR ---
SW met with patient to complete intake. Patient recently discharge from this facility on 03/01 to [facility]. Prior to last admission, patient was living at home alone in [facility]. He is independent with his ADL's and IADL's. He does not utilize any DME to assist with mobility and has no home oxygen needs. PCP is . Patient verbalizes his concerns over being able to discharge today. He is currently paying to hold his room by the day at [facility] and is fearful that they are going to give it away. Patients clinical updates faxed to Sara at [facility]. Sara confirms that they will not give the patients room away. Discharge plan: [facility]
[2022-03-03] MEDS ORDERED: FERRO-TIME325 MG PO (14:46)
[2022-03-03] MEDS ORDERED: ZETIA 10MG TAB10 MG PO (14:46)
[2022-03-03] MEDS ORDERED: CARDIZEM CD 24240 MG PO (14:47)
[2022-03-03] MEDS ORDERED: TYLENOL 500MG500 MG PO (14:47)
[2022-03-03] MEDS ORDERED: NEXIUM 40MG40 MG PO (14:47)
[2022-03-03] MEDS ORDERED: PRAVACHOL 40MG40 MG PO (14:47)
[2022-03-03] MEDS ORDERED: ACTOS30 MG PO (14:48)
[2022-03-03] MEDS ORDERED: GLUCOTROL10 MG PO (14:48)
[2022-03-03] MEDS ORDERED: ANUSOL-HC SUPPO25 MG RC (14:50)
[2022-03-03] MEDS ORDERED: ELIQUIS 5MG PO (14:50)
[2022-03-03] MEDS ORDERED: HCTZ 25MG TAB25 MG PO (14:57)
[2022-03-03] MEDS ORDERED: PRINIVIL40 MG PO (14:58)
--- NOTE | 2022-03-03 15:04 | NUR ---
Phone call made to Sara at [facility] who states that after reviewing the clinical updates, they would like to see how the patient does overnight and would like for him to work with therapy prior to coming back to their facility.
[2022-03-03] MEDS ORDERED: MIRALAX PA17 GM/Dose PO (15:10)
[2022-03-03] MEDS ORDERED: DULCOLAX TAB5 MG PO (15:10)
[2022-03-03 15:11] VITALS: BP 135/48; PULSE 72; TEMP 98.4
[2022-03-03 17:37] LABS: HEMOGLOBIN 8.7 g/dl (13.5-18.0)
[2022-03-03 19:56] VITALS: BP 147/59; PULSE 75; TEMP 98.9
[2022-03-03 21:29] LABS: HEMATOCRIT 28.4 % (42.0-52.0); HEMOGLOBIN 8.6 g/dl (13.5-18.0)
[2022-03-04 00:18] VITALS: BP 149/73; PULSE 71; TEMP 97.7
--- NOTE | 2022-03-04 00:24 | NUR ---
NURSING SHIFT ASSESSMENT COMPLETED. THE PATIENT WAS ALERT AND ORIENTED AND APPROPRIATE. THE PATIENT DENIED PAIN OR DISCOMFORT. THE PLAN OF CARE WAS DISCUSSED AND QUESTIONS AND CONCERNS ADDRESSED. THE PATIENT DID SAY THE HE WAS PLANNING ON DISCHARGING EARLY POSSIBLE TOMORROW MORNING. THE PATIENT DENIED NEEDS. CALL LIGHT WITHIN REACH WELL OTHER PERSONAL BELONGINGS. WILL MONITOR. BED IN LOWEST POSITION.
[2022-03-04 03:51] VITALS: BP 156/58; PULSE 64; TEMP 97.7
[2022-03-04 06:53] LABS: MEAN CELL VOLUME 81 fl (80.0-100.0); MEAN CORPUSCULAR HGB CONC 29 g/dl (33.0-37.0); MEAN PLATELET VOLUME 10.1 fl (7.4-10.4); PLATELET COUNT 434 K/mm3 (130-400); RED BLOOD COUNT 3.59 M/mm3 (4.20-5.60); REDCELL DISTRIBUTION WIDTH-CV 16.3 % (11.5-14.5)
[2022-03-04 06:54] LABS: HEMATOCRIT 29.2 % (42.0-52.0); HEMOGLOBIN 8.5 g/dl (13.5-18.0); MEAN CORPUSCULAR HEMOGLOBIN 24 pg (27-31)
[2022-03-04 07:27] LABS: ALBUMIN 2.1 gm/dL (3.4-4.8); CALCIUM 8.5 mg/dL (8.4-10.2); CREATININE, serum 1.28 mg/dL (0.72-1.25); MAGNESIUM 2.3 mg/dL (1.6-2.6); POTASSIUM 4.9 mmol/L (3.5-4.5)
[2022-03-04 07:28] VITALS: BP 153/58; PULSE 69; TEMP 98.5
[2022-03-04 07:42] LABS: BAND 1 % (0-10); LYMPHOCYTE 8 % (20.0-51.0); MYELOCYTE 4 % (0-0); NEUTROPHILS 76 % (42.0-75.2); PLATELET ESTIMATE INCREASED (NORMAL)
[2022-03-04 07:43] LABS: ANISOCYTOSIS 1+; HYPOCHROMIA 3+
--- NOTE | 2022-03-04 08:12 | NUR ---
PT SITTING UP AT EDGE OF BED. MORNING MEDICATIONS WILL BE GIVEN BY ELLYN RN STUDENT. SHIFT ASSESSMENT COMPLETED. PT DENIES ANY PAIN AT THIS TIME. R WRIST IN SPLINT AND WRAPPED WITH JAZMIN WRAP. BLE WRAPPED AT THIS TIME. SMALL AMOUNT OF RECTAL BLEEDING NOTED. PT EAGER TO D/C BACK TO [facility] TODAY. CALL LIGHT WITHIN REACH. WILL CONTINUE TO MONITOR.
--- NOTE | 2022-03-04 10:22 | NUR ---
POOJA faxed updates to Sara at [facility]. Sara reports that they are able to accept the patient and asked if we could provide them with the supplies for a sitz bath, which is being recommended for the patient. POOJA notified the patient's RN of this and asked that we provide the compressed air pile driver operator with this supplies. [facility] to [facility] for a skilled stay. Transportation was scheduled at 1100, via [facility]. POOJA informed the patient's RN and his friend/DPOA-HC, Óscar, of the time. No additional needs at this time.
--- NOTE | 2022-03-04 10:46 | NUR ---
REPORT CALLED TO RN AT [facility]. PT PERSONAL BELONGINGS PACKED, SITZ BATH PROVIDED PER [facility] REQUEST. IV D/C. TELE D/C. WAITING FOR [facility] TRANSPORTATION TO ARRIVE. PT TRANSPORTED OUT OF FACILITY IN PERSONAL WHEELCHAIR FROM [facility].
--- NOTE | 2022-03-04 12:21 | NUR ---
Primary nurse was assisted with [phone] patient care by [employer] ADN student Flores Colon and [employer] AD[employer] instructor Yudy Nicholson MSN, [facility].
== END 2022-03-04 11:07 ==
LOC: COL.ER 11:00 → MEDICAL 15:27
PROVIDERS: Emergency Medicine; ADMIT Internal Medicine
DX: D64.9 Anemia, unspecified (principal); K57.30 Diverticulosis of large intestine without perforation or abscess without bleeding; K64.3 Fourth degree hemorrhoids; K64.4 Residual hemorrhoidal skin tags; K29.30 Chronic superficial gastritis without bleeding; D12.0 Benign neoplasm of cecum; D12.4 Benign neoplasm of descending colon; D12.5 Benign neoplasm of sigmoid colon; D12.8 Benign neoplasm of rectum; N17.9 Acute kidney failure, unspecified; N18.30 Chronic kidney disease, stage 3 unspecified; E87.5 Hyperkalemia; E87.20 Acidosis, unspecified; R60.9 Edema, unspecified; M25.562 Pain in left knee; M25.561 Pain in right knee; I25.10 Atherosclerotic heart disease of native coronary artery without angina pectoris; E78.5 Hyperlipidemia, unspecified; I27.20 Pulmonary hypertension, unspecified; I50.30 Unspecified diastolic (congestive) heart failure; I13.0 Hypertensive heart and chronic kidney disease with heart failure and stage 1 through stage 4 chronic kidney disease, or unspecified chronic kidney disease; E11.22 Type 2 diabetes mellitus with diabetic chronic kidney disease; E66.01 Morbid (severe) obesity due to excess calories; Z68.42 Body mass index [BMI] 45.0-49.9, adult; I89.0 Lymphedema, not elsewhere classified; Z86.718 Personal history of other venous thrombosis and embolism; Z79.899 Other long term (current) drug therapy; Z79.84 Long term (current) use of oral hypoglycemic drugs
CPT/HCPCS: C9113; G0378; J1815; J2405; J2704; J2765; J7030; J7120